=== PATIENT | male | born 1965 | race Caucasian/White ===

== ENCOUNTER 2018-06-19 14:15 | Inpatient (IN) | payer OTHER ==
[~2018-06-19] VITALS: Ht 182.9 cm; Wt 104.5 kg
--- NOTE | 2018-06-19 14:53 | ERD ---
ER Documentation Chief Complaint Chief Complaint sob HPI The patient is a 52-year-old male, presenting to the ER because of intermittent dyspnea/cough for the last 2 months, worse for the last 2 days. He denies fever, chills, neck pain, chest pain, complains of abdominal distention and constipation for the last 2 months, denies dysuria, hematuria. He does not smoke, used to drink heavily, denies illicit drug Past medical history: Gout, cirrhosis, anxiety Past surgical history: Left upper extremity surgery ROS All systems reviewed and are negative except as per history of present illness. Medications Home Meds No Active Prescriptions or Reported Meds Allergies Allergies: Coded Allergies: No Known Allergy (Unverified , 06/19/18) Physical Exam Vitals Vital Signs Date Temp Pulse Resp B/P (MAP) Pulse Ox O2 O2 Flow FiO2 Time Delivery Rate 06/19/18 Nasal 2 15:13 Cannula 06/19/18 Nasal 2.0 15:06 Cannula 06/19/18 98.6 78 24 148/78 98 14:20 (101) Physical Exam Const: No acute distress. Head: Atraumatic. Eyes: Normal Conjunctiva. ENT: Normal External Ears, Nose and Mouth. Neck: Full range of motion. No meningismus. Resp: Mild bilateral expiratory wheezes Cardio: Regular tachycardic Abd: Soft, non distended, normal bowel sounds, non tender. Skin: No petechiae or rashes. Back: No midline or flank tenderness. Ext: No cyanosis, or edema. No calf tenderness Neur: Awake and alert. No focal deficit Psych: Normal Mood and Affect. Result Diagram: 06/19/18 1505 06/19/18 1505 Results 24 hrs Laboratory Tests Test 06/19/18 15:05 White Blood Count 9.9 10^3/ul Red Blood Count 5.19 10^6/ul Hemoglobin 15.0 g/dl Hematocrit 46.0 % Mean Corpuscular Volume 88.6 fl Mean Corpuscular Hemoglobin 28.9 pg Mean Corpuscular Hemoglobin Concent 32.6 g/dl Red Cell Distribution Width 14.6 % Platelet Count 163 10^3/UL Mean Platelet Volume 11.6 fl Immature Granulocytes % 0.400 % Neutrophils % 70.5 % Lymphocytes % 15.3 % Monocytes % 8.2 % Eosinophils % 5.0 % Basophils % 0.6 % Nucleated Red Blood Cells % 0.0 /100WBC Immature Granulocytes # 0.040 10^3/ul Neutrophils # 7.0 10^3/ul Lymphocytes # 1.5 10^3/ul Monocytes # 0.8 10^3/ul Eosinophils # 0.5 10^3/ul Basophils # 0.1 10^3/ul Nucleated Red Blood Cells # 0.0 10^3/ul Prothrombin Time 12.7 Sec Prothrombin Time Ratio 1.0 INR International Normalized Ratio 0.94 Activated Partial Thromboplast Time 28.7 Sec Sodium Level 137 mmol/L Potassium Level 4.5 mmol/L Chloride Level 103 mmol/L Carbon Dioxide Level 26 mmol/L Anion Gap 8 Blood Urea Nitrogen 16 mg/dl Creatinine 1.00 mg/dl Est Glomerular Filtrat Rate mL/min > 60 mL/min Glucose Level 125 mg/dl Calcium Level 8.8 mg/dl Magnesium Level 1.8 mg/dl Total Bilirubin 1.4 mg/dl Direct Bilirubin 0.00 mg/dl Indirect Bilirubin 1.4 mg/dl Aspartate Amino Transf (AST/SGOT) 37 IU/L Alanine Aminotransferase (ALT/SGPT) 36 IU/L Alkaline Phosphatase 76 IU/L Troponin I 0.028 ng/ml B-Type Natriuretic Peptide 4090 PG/ML Total Protein 6.7 g/dl Albumin 3.9 g/dl Globulin 2.80 g/dl Albumin/Globulin Ratio 1.39 Current Medications Medications Dose Sig/Nemesio Start Time Status Last (Trade) Ordered Route PRN Stop Time Admin Dose Reason Admin Furosemide 40 mg ONCE ONCE 06/19/18 DC (Lasix) IV 18:00 06/19/18 18:01 Procedures/[place] [address] Radiology Main Line: [phone] DIAGNOSTIC IMAGING REPORT Patient: ERIC CASIANO : 1965 Age: 52 Sex: M MR #: [id number] DOS: 06/19/18 1509 Ordering MD: KARYNA HERNANDEZ MD Location: E/R Room/Bed: PROCEDURE: US Abdomen and retroperitoneal complete. CLINICAL INDICATION: abdominal pain TECHNIQUE: Multiple real-time images were acquired of the patient's abdomen and retroperitoneum utilizing a high resolution transducer. COMPARISON: None FINDINGS: The liver demonstrates normal echogenicity. The liver is enlarged in size and no focal solid lesions are seen. The portal vein is patent with normal direction of flow. No intrahepatic biliary dilatation is seen. The liver measures 18.8 cm in length. No gallstones are identified within the gallbladder. There is no pericholecystic fluid or gallbladder wall thickening. The common bile duct measures 3 mm in maximal dimension. The visualized portions of the pancreas are unremarkable. The tail of the pancreas is not seen. The spleen is normal in size. The spleen measures 8.7 cm in length. No free fluid is identified. The kidneys are normal in size, and demonstrate normal cortical echogenicity and cortical thickness. The right kidney measures 13 cm. The left kidney measures 12 cm. There is no evidence of hydronephrosis. There are no kidney stones. There is a 1.9 cm simple cyst in the right kidney. The proximal aorta measures 2.4 cm in transverse dimension. RPTAT: AA IMPRESSION: Mild hepatomegaly. No evidence of gallstones. Small simple cyst in the right kidney. .Jame Foy MD, MD Date Time Electronically viewed and signed by .Jame Foy MD, on 06/19/2018 16:19 .S/ CC: KARYNA HERNANDEZ MD [id number] [place] [address] Radiology Main Line: [phone] DIAGNOSTIC IMAGING REPORT Patient: ERIC CASIANO : 1965 Age: 52 Sex: M MR #: [id number] DOS: 06/19/18 0000 Ordering MD: KARYNA HERNANDEZ MD Location: E/R Room/Bed: PROCEDURE: XR Chest. CLINICAL INDICATION: Shortness of breath. TECHNIQUE: Single frontal view. COMPARISON: None. FINDINGS: The lungs are clear. The heart is enlarged. There is no pleural effusion. There is no pneumothorax. IMPRESSION: 1. Cardiomegaly. 2. Otherwise unremarkable chest radiograph. RPTAT: QQ .Chet Vallecillo MD, MD Date Time Electronically viewed and signed by .Chet Vallecillo MD, MD on 06/19/2018 16:25 .R/ CC: KARYNA HERNANDEZ MD [phone] EKG: Read by emergency physician Rate/Rhythm: Sinus tachycardia 115 beats/min QRS, ST, T-waves: No ST elevation, no T inversion,ABEL, RBBB, septal Q waves, inferolateral ST abnormality Impression: Abnormal EKG MEDICAL MAKING DECISION: The patient is a 52-year-old male, presenting with acute new onset CHF, was treated with Lasix 40 mg IV for acute CHF with good response The differential diagnoses considered include but are not limited to asthma, COPD, pneumonia, pulmonary embolus, pleural effusion, congestive heart failure. Departure Diagnosis: Primary Impression: CHF (congestive heart failure) Additional Impressions: Hepatomegaly Renal cyst, right Condition: Stable Comments The patient's blood pressure was elevated (>120/80) but appears stable without evidence of hypertension emergency or urgency. The patient was counseled about the risks of hypertension and urged to pursue outpatient monitoring and therapy within a week with their primary care physician. I discussed the findings with the patient. I discussed the patient with the hospitalist Dr Palomares at 6:10 pm . who was made aware of the lab, the treatment, the patient condition. The patient is admitted to [facility] Disclaimer: Inadvertent spelling and grammatical errors are likely due to EHR/dictation software use and do not reflect on the overall quality of patient care. Also, please note that the electronic time recorded on this note does not necessarily reflect the actual time of the patient encounter. KARYNA HERNANDEZ MD Jun 19, 2018 14:53
[2018-06-19] MEDS ORDERED: FUROSEMIDE 40 MG INJ IV ONE (18:00)
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
[2018-06-19] MEDS ORDERED: ACETAMINOPHEN 325 MG TAB PO PRN (20:00)
[2018-06-19] MEDS ORDERED: ONDANSETRON 4 MG INJ IV PRN (20:00)
[2018-06-19] MEDS ORDERED: NACL 0.9% 3 ML SYG IV SCH (20:00)
[2018-06-19 21:20] VITALS: BP 121/72; PULSE 107; RESP 20
[2018-06-19 21:21] VITALS: PULSE 109
[2018-06-19] MEDS: BENAZEPRIL 20 MG TAB PO SCH (21:39)
[2018-06-19] MEDS: SENNA TAB PO SCH (21:39)
[2018-06-19 22:04] VITALS: Ht 182.9 cm; Wt 104.5 kg
[2018-06-19] MEDS ORDERED: IOHEXOL 300MG/ML 150 ML BTL ONE (23:12)
[2018-06-19] MEDS ORDERED: SOD CHLORIDE 0.9% 100 ML ONE (23:12)
[2018-06-20] VITALS (12 sets, daily range): BP systolic 108–119; BP diastolic 58–73; PULSE 88–112; RESP 18–20
[2018-06-20] MEDS: FUROSEMIDE 40 MG INJ IV SCH ×2 (05:22→17:35)
[2018-06-20] MEDS: PANTOPRAZOLE (EC) 40 MG TAB PO SCH (05:22)
[2018-06-20] MEDS: SENNA TAB PO SCH ×2 (08:19→20:56)
[2018-06-20] MEDS: BENAZEPRIL 20 MG TAB PO SCH (08:19)
--- NOTE | 2018-06-20 13:47 | PN ---
Date/Time of Note Date/Time of Note DATE: 06/20/18 TIME: 13:44 Assessment/Plan VTE Prophylaxis Risk score (from Ns)>0 risk: 3 SCD applied (from Ns): Yes Pharmacological prophylaxis: heparin Lines/Catheters [facility] Saline Lock Assessment/Plan Hospital Course 52 yo male who presents with respiratory failure from volume overload, new onset CHF - Continue lasix IV to euvolemia - Await TTE read - NANDO-I for now Result Diagram: 06/20/18 0451 06/20/18 0450 Results 24hrs Laboratory Tests Test 06/19/18 15:05 06/20/18 04:50 06/20/18 04:51 White Blood Count 9.9 9.9 Red Blood Count 5.19 5.12 Hemoglobin 15.0 14.9 Hematocrit 46.0 45.3 Mean Corpuscular Volume 88.6 88.5 Mean Corpuscular Hemoglobin 28.9 L 29.1 Mean Corpuscular Hemoglobin Concent 32.6 32.9 Red Cell Distribution Width 14.6 H 14.6 H Platelet Count 163 177 Mean Platelet Volume 11.6 H 11.5 H Immature Granulocytes % 0.400 0.400 Neutrophils % 70.5 65.7 Lymphocytes % 15.3 17.0 Monocytes % 8.2 10.0 Eosinophils % 5.0 6.2 Basophils % 0.6 0.7 Nucleated Red Blood Cells % 0.0 0.0 Immature Granulocytes # 0.040 H 0.040 H Neutrophils # 7.0 6.5 Lymphocytes # 1.5 1.7 Monocytes # 0.8 1.0 H Eosinophils # 0.5 0.6 H Basophils # 0.1 0.1 Nucleated Red Blood Cells # 0.0 0.0 Prothrombin Time 12.7 Prothrombin Time Ratio 1.0 INR International Normalized Ratio 0.94 Activated Partial Thromboplast Time 28.7 Sodium Level 137 141 Potassium Level 4.5 4.1 Chloride Level 103 99 Carbon Dioxide Level 26 31 Anion Gap 8 11 Blood Urea Nitrogen 16 18 Creatinine 1.00 1.15 Est Glomerular Filtrat Rate mL/min > 60 > 60 Glucose Level 125 105 Calcium Level 8.8 8.9 Magnesium Level 1.8 1.9 Total Bilirubin 1.4 H 1.6 H Direct Bilirubin 0.00 0.00 Indirect Bilirubin 1.4 H 1.6 H Aspartate Amino Transf (AST/SGOT) 37 29 Alanine Aminotransferase (ALT/SGPT) 36 35 Alkaline Phosphatase 76 70 Troponin I 0.028 0.046 B-Type Natriuretic Peptide 4090 H Total Protein 6.7 6.8 Albumin 3.9 3.8 Globulin 2.80 3.00 Albumin/Globulin Ratio 1.39 1.26 Hemoglobin A1c 5.3 Phosphorus Level 5.5 H Triglycerides Level 97 Cholesterol Level 180 LDL Cholesterol, Calculated 134 HDL Cholesterol 27 L Cholesterol/HDL Ratio 6.6 Thyroid Stimulating Hormone (TSH) 0.690 Subjective 24 Hr Interval Summary Free Text/Dictation Diuresing effectively by his report A bit less dyspnea Exam/Review of Systems Vital Signs Vitals Vital Signs Date Temp Pulse Resp B/P (MAP) Pulse Ox O2 O2 Flow FiO2 Time Delivery Rate 06/20/18 90 12:38 06/20/18 97.8 18 110/73 96 Nasal 11:05 (85) Cannula 06/19/18 2.0 20:27 Intake and Output 06/19/18 06/19/18 06/20/18 1515:00 23:00 07:00 IntakeIntake Total 400 ml OutputOutput Total 450 ml BalanceBalance -50 ml Exam Comfortable appearing ++ JVD RRR Clear lungs Mild pedal edema b/l Medications Medications Current Medications IV Flush (NS 3 ml) 3 ml PER PROTOCOL IV ; Start 06/19/18 at 20:00 Ondansetron HCl (Zofran Inj) 4 mg Q6H PRN IV NAUSEA AND/OR VOMITING; Start 06/19/18 at 20:00 Acetaminophen (Tylenol Tab) 650 mg Q6H PRN PO PAIN LEVEL 1-3 OR FEVER; Start 06/19/18 at 20:00 Pantoprazole (Protonix Tab) 40 mg DAILY@06 PO Last administered on 06/20/18at 05:22; Admin Dose 40 MG; Start 06/20/18 at 06:00 Senna (Senokot) 2 tab BID PO Last administered on 06/20/18at 08:19; Admin Dose 2 TAB; Start 06/19/18 at 21:00 Furosemide (Lasix) 40 mg BID DIURETICS IV Last administered on 06/20/18at 05:22; Admin Dose 40 MG; Start 06/20/18 at 06:00 Benazepril HCl (Lotensin) 20 mg DAILY PO Last administered on 06/20/18at 08:19; Admin Dose 20 MG; Start 06/19/18 at 20:00 AHMET SOLIS MD Jun 20, 2018 13:47
[2018-06-21] VITALS (16 sets, daily range): BP systolic 97–128; BP diastolic 60–78; PULSE 81–230; RESP 18–19
[2018-06-21] MEDS: PANTOPRAZOLE (EC) 40 MG TAB PO SCH (05:33)
[2018-06-21] MEDS: FUROSEMIDE 40 MG INJ IV SCH (05:33)
[2018-06-21] MEDS: BENAZEPRIL 20 MG TAB PO SCH (08:05)
[2018-06-21] MEDS: SENNA TAB PO SCH ×2 (08:06→20:35)
--- NOTE | 2018-06-21 14:17 | RADRPT ---
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 Physician: JEREMY GREENE Quality: Good Procedures: Transthoracic echocardiogram with complete 2D, M-Mode, and doppler examination. Indications: Suspect mew Congestive Heart Failure. 2D/M Mode Doppler Measurement Value Normal Ranges Measurement Value Normal Ranges LVIDd MM 7.3 cm AV Mean Jonatan 0.8 m/sec LVIDs MM 6.3 cm AV Mean PG 3.0 mmHg IVSd MM 1.4 cm AV Peak Jonatan 1.2 m/sec AoR Diam MM 4.5 cm AV Peak PG 6.0 mmHg ACS MM 2.2 cm AV VTI 19.8 cm LA/Ao MM 1.0 AI Peak PG 41.0 mmHg LA Dimen MM 4.5 cm AI Peak Jonatan 3.2 m/sec LVIDd 2D 7.3 3.5 - 5.6 cm AI PHT 421.0 msec LVIDs 2D 5.8 2.1 - 4.1 cm LVOT Mean Jonatan 0.5 m/sec LVPWd 2D 1.4 0.6 - 1.1 cm LVOT Mean PG 1.0 mmHg IVSd 2D 1.5 0.6 - 1.1 cm LVOT Peak Jonatan 0.9 m/sec AoR Diam 2D 4.7 2.0 - 3.7 cm LVOT Peak PG 3.0 mmHg LA/Ao 2D 1 0 - 1 MV E Peak Jonatan 0.9 m/sec EF 2D 30.0 50.0 - 65.0 % MV A Peak Jonatan 0.7 m/sec LA Dimen 2D 4.6 2.3 - 4.0 cm MV E/A 1.2 IVC Diam 2.4 1.2 - 2.0 MV PHT 29.0 msec MV Decel Time 99 msec MV Decel Nicholas 9 Lat E` Jonatan 0.1 m/sec Lateral E/E` 16.5 Med E` Jonatan 0.0 m/sec MV E/A 1.2 MV PHT 29.0 msec MVA PHT 7.6 cm2 MR Peak PG 50.0 mmHg MR Peak Jonatan 3.5 m/sec TAPSE 2.6 cm PV Peak Jonatan 0.6 m/sec PV Peak PG 1.0 mmHg RA Pressure 15.0 Findings Left Ventricle: Moderate concentric left ventricular hypertrophy. Severe enlargement of left ventricle cavity. Severe global left ventricular systolic dysfunction. Ejection fraction is visually estimated at 20 %. Right Ventricle: Moderate enlargement of right ventricle. Left Atrium: There is moderate enlargement of left atrium. Right Atrium: There is moderate enlargement of right atrium. Mitral Valve: Normal appearance of the mitral valve. Mild to moderate mitral valve regurgitation. Aortic Valve: Normal appearance of the aortic valve. Mild to moderate aortic valve regurgitation. The regurgitation jet is eccentrically directed. Tricuspid Valve: Normal appearance and function of the tricuspid valve with trace physiologic regurgitation. Unable to obtain RVSP due to minimal presence of tricuspid regurgitation. Pulmonic Valve: Normal pulmonic valve appearance. Pericardium: Normal pericardium with no significant pericardial effusion. Aorta: Normal aortic root. IVC: Dilated IVC with respiratory collapse consistent with elevated right atrial pressure. Conclusions There is moderate enlargement of left atrium. There is moderate enlargement of right atrium. Moderate enlargement of right ventricle. Moderate concentric left ventricular hypertrophy. Severe enlargement of left ventricle cavity. Severe global left ventricular systolic dysfunction. Ejection fraction is visually estimated at 20 %. Normal appearance of the mitral valve. Mild to moderate mitral valve regurgitation. Normal appearance of the aortic valve. Mild to moderate aortic valve regurgitation. The regurgitation jet is eccentrically directed. Normal appearance and function of the tricuspid valve with trace physiologic regurgitation. Unable to obtain RVSP due to minimal presence of tricuspid regurgitation. Dilated IVC with respiratory collapse consistent with elevated right atrial pressure. Electronically Signed By: Markus Veloz 21-Jun-2018 14:16:35 -0800 Patient Name: ERIC CASIANO Study Date: 20-Jun-[id number]
--- NOTE | 2018-06-21 14:58 | PN ---
Date/Time of Note Date/Time of Note DATE: 06/21/18 TIME: 14:56 Assessment/Plan VTE Prophylaxis Risk score (from Nsg)>0 risk: 1 SCD applied (from Nsg): Yes Pharmacological prophylaxis: heparin Lines/Catheters IV Catheter Type (from Nrsg): Saline Lock Assessment/Plan Hospital Course 52 yo male who presents with respiratory failure from volume overload, new onset CHF. Found to have dilated cardiomyopathy with EF 20 - Hold lasix IV given TAURUS, volume much improved Dilated CM with EF 20: - Continue NANDO-I - Start Toprol - Cardiology consult Discharge to home pending Result Diagram: 06/20/18 0451 06/21/18 0538 Results 24hrs Laboratory Tests Test 06/21/18 05:38 Sodium Level 138 Potassium Level 4.0 Chloride Level 102 Carbon Dioxide Level 28 Anion Gap 8 Blood Urea Nitrogen 29 #H Creatinine 1.40 H Est Glomerular Filtrat Rate mL/min 53 L Glucose Level 125 Calcium Level 9.1 Subjective 24 Hr Interval Summary Free Text/Dictation Diuretics held for TAURUS respiratory status improved Dilated CM on TTE Exam/Review of Systems Vital Signs Vitals Vital Signs Date Temp Pulse Resp B/P (MAP) Pulse Ox O2 O2 Flow FiO2 Time Delivery Rate 06/21/18 103 12:20 06/21/18 98.4 19 97/73 (81) 97 11:29 06/21/18 Nasal 2.0 10:30 Cannula Intake and Output 06/20/18 06/20/18 06/21/18 1515:00 23:00 07:00 IntakeIntake Total 1200 ml 400 ml BalanceBalance 1200 ml 400 ml Exam breathing comfortably Mild JVD, improved No perihperal edema Obese belly Medications Medications Current Medications IV Flush (NS 3 ml) 3 ml PER PROTOCOL IV ; Start 06/19/18 at 20:00 Ondansetron HCl (Zofran Inj) 4 mg Q6H PRN IV NAUSEA AND/OR VOMITING; Start 06/19/18 at 20:00 Acetaminophen (Tylenol Tab) 650 mg Q6H PRN PO PAIN LEVEL 1-3 OR FEVER; Start 06/19/18 at 20:00 Pantoprazole (Protonix Tab) 40 mg DAILY@06 PO Last administered on 06/21/18at 05:33; Admin Dose 40 MG; Start 06/20/18 at 06:00 Senna (Senokot) 2 tab BID PO Last administered on 06/21/18at 08:06; Admin Dose 2 TAB; Start 06/19/18 at 21:00 Benazepril HCl (Lotensin) 20 mg DAILY PO Last administered on 06/21/18at 08:05; Admin Dose 20 MG; Start 06/19/18 at 20:00 AHMET SOLIS MD Jun 21, 2018 14:58
[2018-06-21] MEDS ORDERED: DIGOXIN 500 MCG INJ IV ONE (15:00)
--- NOTE | 2018-06-21 16:36 | CONS ---
Date/Time of Note Date/Time of Note DATE: 06/21/18 TIME: 16:30 Assessment/Plan Assessment/Plan Hospital Course 1. Congestive heart failure: Acute on chronic secondary to systolic heart failure 2. Abnormal EKG due to above 3. Severe cardiomyopathy 4. Dyspnea shortness of breath secondary to above 5. Renal insufficiency probably secondary to diuresis 6. Sinus tachycardia secondary to above Recommendations: IV Lasix has been discontinued. I will start the patient on digoxin We will start the patient on NANDO inhibitor now and as tolerated carvedilol will be added as well Diuresis as needed at this point does not appear to be fluid overloaded though WILL probably benefit from Corlanor which be reinitiated if still tachycardic after maximize medical therapy including beta-susana We will consider ischemic workup as an outpatient Thank you for his referral. We will continue to follow along with you EUSEBIA TRAVIS MD [facility] Result Diagram: 06/20/18 0451 06/21/18 0538 Results 24hrs Laboratory Tests Test 06/21/18 05:38 Sodium Level 138 Potassium Level 4.0 Chloride Level 102 Carbon Dioxide Level 28 Anion Gap 8 Blood Urea Nitrogen 29 #H Creatinine 1.40 H Est Glomerular Filtrat Rate mL/min 53 L Glucose Level 125 Calcium Level 9.1 Consultation Date/Type/Reason Admit Date/Time Jun 19, 2018 Date of Consultation: Jun 21, 2018 Type of Consult cv Reason for Consultation CHF Requesting Provider: AHMET SOLIS MD Hx of Present Illness Interventional cardiology consultation note Chief complaint: Abdominal GERD shortness of breath PND Reason for consult: Congestive heart failure History of present illness: Thank you for this referral. History was obtained from the patient through a orthotic/prosthetic practitioner. Also discussed with the staff and physicians. This is a pleasant 52-year-old [place] gentleman with no known past medical history who has had increasing shortness of breath abdominal cares over the past 2 months. He denies any chest pain or pressure to me but has dyspnea on exertion. He is also noted abdominal distention and came to emergency room. He was admitted with congestive heart failure diagnosis had been placed on IV L asix. His creatinine has started to rise. He has also complained of difficulty breathing at night on waking up short of breath intermittently consistent with his PND. However this has resolved now Allergies: No known drug allergies Medications At Home none Family history: Mother has high blood pressure Social history: Patient denies any history of tobacco alcohol drug abuse to me. He said that he used to drink a little bit with 1 or 2 beer may be maximum no heavy drinking. He is originally from [place] Past medical history: Denies any Review of system: Patient denies all others except for above-mentioned Past Medical History Medications Current Medications IV Flush (NS 3 ml) 3 ml PER PROTOCOL IV ; Start 06/19/18 at 20:00 Ondansetron HCl (Zofran Inj) 4 mg Q6H PRN IV NAUSEA AND/OR VOMITING; Start 06/19/18 at 20:00 Acetaminophen (Tylenol Tab) 650 mg Q6H PRN PO PAIN LEVEL 1-3 OR FEVER; Start 06/19/18 at 20:00 Pantoprazole (Protonix Tab) 40 mg DAILY@06 PO Last administered on 06/21/18at 05:33; Admin Dose 40 MG; Start 06/20/18 at 06:00 Senna (Senokot) 2 tab BID PO Last administered on 06/21/18at 08:06; Admin Dose 2 TAB; Start 06/19/18 at 21:00 Benazepril HCl (Lotensin) 20 mg DAILY PO Last administered on 06/21/18at 08:05; Admin Dose 20 MG; Start 06/19/18 at 20:00 Allergies: Coded Allergies: No Known Allergy (Unverified , 06/19/18) Social History Alcohol Use: none Smoking Status: Never smoker Drug Use: none Exam/Review of Systems Vital Signs Vitals Vital Signs Date Temp Pulse Resp B/P (MAP) Pulse Ox O2 O2 Flow FiO2 Time Delivery Rate 06/21/18 98.8 99 19 116/72 95 15:13 (87) 06/21/18 Nasal 2.0 10:30 Cannula Intake and Output 06/20/18 06/20/18 06/21/18 1414:59 22:59 06:59 IntakeIntake Total 1200 ml 400 ml BalanceBalance 1200 ml 400 ml Exam General: no acute distress HEENT: NC/AT. pupils are equal. round. NECK: + JVD. no stridor. CV: RRR. systolic murmur; no gallop or rubs. PULM: no wheezing or rhonchi. GI: SOFT, NT, ND, no rebound or guarding Extremity: trace B/L LE edema. no clubbing. neuro: awake and alert, OX3. Psych: calm and pleasant rectal: deferred : normal EKG was personally reviewed shows sinus tachycardia. Right bundle branch block. Anteroseptal infarct age undetermined. Echocardiogram done June 20, 2018 which was personally reviewed shows: There is moderate enlargement of left atrium. There is moderate enlargement of right atrium. Moderate enlargement of right ventricle. Moderate concentric left ventricular hypertrophy. Severe enlargement of left ventricle cavity. Severe global left ventricular systolic dysfunction. Ejection fraction is visually estimated at 20 %. Normal appearance of the mitral valve. Mild to moderate mitral valve regurgitation. Normal appearance of the aortic valve. Mild to moderate aortic valve regurgitation. The regurgitation jet is eccentrically directed. Normal appearance and function of the tricuspid valve with trace physiologic regurgitation. Unable to obtain RVSP due to minimal presence of tricuspid regurgitation. Dilated IVC with respiratory collapse consistent with elevated right atrial pressure. Chest x-ray done on June 19, 2018 shows: 1. Cardiomegaly. 2. Otherwise unremarkable chest radiograph. Medications Medications Current Medications IV Flush (NS 3 ml) 3 ml PER PROTOCOL IV ; Start 06/19/18 at 20:00 Ondansetron HCl (Zofran Inj) 4 mg Q6H PRN IV NAUSEA AND/OR VOMITING; Start 06/19/18 at 20:00 Acetaminophen (Tylenol Tab) 650 mg Q6H PRN PO PAIN LEVEL 1-3 OR FEVER; Start 06/19/18 at 20:00 Pantoprazole (Protonix Tab) 40 mg DAILY@06 PO Last administered on 06/21/18at 05:33; Admin Dose 40 MG; Start 06/20/18 at 06:00 Senna (Senokot) 2 tab BID PO Last administered on 06/21/18at 08:06; Admin Dose 2 TAB; Start 06/19/18 at 21:00 Benazepril HCl (Lotensin) 20 mg DAILY PO Last administered on 06/21/18at 08:05; Admin Dose 20 MG; Start 06/19/18 at 20:00 EUSEBIA TRAVIS MD Jun 21, 2018 16:36
[2018-06-21] MEDS ORDERED: LISINOPRIL 5 MG TAB PO SCH (17:00)
[2018-06-21] MEDS: ASPIRIN (EC) 81 MG TAB PO SCH (17:04)
[2018-06-21] MEDS ORDERED: ATORVASTATIN 10 MG TAB PO SCH (21:00)
[2018-06-22] VITALS (9 sets, daily range): BP systolic 104–140; BP diastolic 66–85; PULSE 89–108; RESP 20–22
[2018-06-22] MEDS: PANTOPRAZOLE (EC) 40 MG TAB PO SCH (05:40)
[2018-06-22] MEDS: BENAZEPRIL 20 MG TAB PO SCH (09:33)
[2018-06-22] MEDS: SENNA TAB PO SCH (09:33)
[2018-06-22] MEDS: ASPIRIN (EC) 81 MG TAB PO SCH (09:33)
[2018-06-22] MEDS ORDERED: METOPROLOL 25 MG TAB PO SCH (10:30)
--- NOTE | 2018-06-22 10:32 | CONS ---
Date/Time of Note Date/Time of Note DATE: 06/22/18 TIME: 10:30 Assessment/Plan Assessment/Plan Hospital Course 1. Congestive heart failure: Acute on chronic secondary to systolic heart failure 2. Abnormal EKG due to above 3. Severe cardiomyopathy 4. Dyspnea shortness of breath secondary to above 5. Renal insufficiency probably secondary to diuresis 6. Sinus tachycardia secondary to above Assessment/Plan will add metoprolol 25 bid Result Diagram: 06/20/18 0451 06/22/18 0502 Results 24hrs Laboratory Tests Test 06/22/18 05:02 Sodium Level 142 Potassium Level 4.1 Chloride Level 102 Carbon Dioxide Level 29 Anion Gap 11 Blood Urea Nitrogen 37 H Creatinine 1.40 H Est Glomerular Filtrat Rate mL/min 53 L Glucose Level 140 Calcium Level 9.1 Magnesium Level 2.2 Total Bilirubin 0.6 Direct Bilirubin 0.00 Indirect Bilirubin 0.6 Aspartate Amino Transf (AST/SGOT) 25 Alanine Aminotransferase (ALT/SGPT) 26 Alkaline Phosphatase 100 B-Type Natriuretic Peptide 715 H Total Protein 7.3 Albumin 3.9 Globulin 3.40 H Albumin/Globulin Ratio 1.14 Consultation Date/Type/Reason Admit Date/Time Jun 19, 2018 at 19:53 Initial Consult Date 06/21/18 Type of Consult cv Requesting Provider: AHMET SOLIS MD 24 HR Interval Summary Free Text/Dictation sob improved though still present when getting into upright position Detailed Summary Respiratory: no complaints Cardiovascular: no complaints Gastrointestinal: no complaints Musculoskeletal: no complaints Skin: no complaints Neurologic: no complaints Endocrine: no complaints Exam/Review of Systems Vital Signs Vitals Vital Signs Date Temp Pulse Resp B/P (MAP) Pulse Ox O2 O2 Flow FiO2 Time Delivery Rate 06/22/18 101 09:03 06/22/18 Room Air 08:17 06/22/18 97.7 20 117/78 96 07:41 (91) 06/22/18 2.0 03:47 Intake and Output 06/21/18 06/21/18 06/22/18 1515:00 23:00 07:00 IntakeIntake Total 700 ml 600 ml BalanceBalance 700 ml 600 ml Exam Constitutional: alert, oriented Neck: supple Respiratory: clear to auscultation Cardiovascular: regular rate and rhythm Gastrointestinal: soft Musculoskeletal: nl extremities to inspection Extremities: normal pulses Medications Medications Current Medications IV Flush (NS 3 ml) 3 ml PER PROTOCOL IV ; Start 06/19/18 at 20:00 Ondansetron HCl (Zofran Inj) 4 mg Q6H PRN IV NAUSEA AND/OR VOMITING; Start 06/19/18 at 20:00 Acetaminophen (Tylenol Tab) 650 mg Q6H PRN PO PAIN LEVEL 1-3 OR FEVER; Start 06/19/18 at 20:00 Pantoprazole (Protonix Tab) 40 mg DAILY@06 PO Last administered on 06/22/18at 05:40; Admin Dose 40 MG; Start 06/20/18 at 06:00 Senna (Senokot) 2 tab BID PO Last administered on 06/22/18at 09:33; Admin Dose 2 TAB; Start 06/19/18 at 21:00 Benazepril HCl (Lotensin) 20 mg DAILY PO Last administered on 06/22/18at 09:33; Admin Dose 20 MG; Start 06/19/18 at 20:00 Aspirin (Halfprin) 81 mg DAILY PO Last administered on 06/22/18at 09:33; Admin Dose 81 MG; Start 06/21/18 at 17:00 Atorvastatin Calcium (Lipitor) 10 mg HS PO Last administered on 06/21/18at 20:35; Admin Dose 10 MG; Start 06/21/18 at 21:00 Digoxin (Digoxin) 0.125 mg DAILY@13 PO ; Start 06/22/18 at 13:00 MCKENNA MONTANO MD Jun 22, 2018 10:32
[2018-06-22] MEDS ORDERED: DIGOXIN 0.125 MG TAB PO SCH (13:00)
[2018-06-22] MEDS ORDERED: METO-319 PO (15:23)
[2018-06-22] MEDS ORDERED: ASPI-817 PO (15:23)
[2018-06-22] MEDS ORDERED: FURO-110 PO (15:23)
[2018-06-22] MEDS ORDERED: LISI10TA2 PO (15:23)
[2018-06-22] MEDS ORDERED: ATOR10TA65 PO (15:23)
--- NOTE | 2018-06-22 15:24 | PDOCDIS ---
Discharge Instructions DIAGNOSIS Discharge Diagnosis CHF CONDITION [id number] Patient Condition: [id number] Stable HOME CARE INSTRUCTIONS: [id number] Special Diet: [id number] POINTMENTS Follow-up Plan Jair anshul donna con los cardiologos en [place]. Tiene problema de kamran que require tratamiento para todo la chase Génesis ollie medicamentos cada yang AHMET SOLIS MD Jun 22, 2018 15:24
--- NOTE | 2018-06-22 16:08 | DS ---
Date/Time of Note Date/Time of Note DATE: 06/22/18 TIME: 16:07 Discharge Summary Admission/Discharge Info Admit Date/Time Jun 19, 2018 at 19:53 Discharge Date/Time Discharge Diagnosis CHF Patient Condition: Stable Hospital Course 52 yo male who presents with respiratory failure from volume overload. Found to have new onset CHF with global hypokinesis, dilated cardiomyopathy with EF 20 He was given IV lasix and volume status normalized. He was started on NANDO inhibitor and Beta blocke.r Discharged on lisinopril, Toprol, and lasix 20 and encouraged to follow up with cardiology as an outpatient for titration of medications and consideration of ischemia evaluation Follow-up Plan Jair anshul donna con los cardiologos en [place]. Tiene problema de kamran que require tratamiento para todo la chase Génesis ollie medicamentos cada yang Primary Care Provider Care Physician No Primary Pending Labs Laboratory Tests Test 06/22/18 05:02 Sodium Level 142 mmol/L (135-144) Potassium Level 4.1 mmol/L (3.5-5.1) Chloride Level 102 mmol/L (97-110) Carbon Dioxide Level 29 mmol/L (21-31) Anion Gap 11 (5-13) Blood Urea Nitrogen 37 mg/dl (7-20) Creatinine 1.40 mg/dl (0.61-1.24) Est Glomerular Filtrat Rate mL/min 53 mL/min (>60) Glucose Level 140 mg/dl (70-220) Calcium Level 9.1 mg/dl (8.4-10.2) Magnesium Level 2.2 mg/dl (1.7-2.5) Total Bilirubin 0.6 mg/dl (0.2-1.3) Direct Bilirubin 0.00 mg/dl (0.00-0.20) Indirect Bilirubin 0.6 mg/dl (0-1.1) Aspartate Amino Transf (AST/SGOT) 25 IU/L (15-46) Alanine Aminotransferase (ALT/SGPT) 26 IU/L (13-69) Alkaline Phosphatase 100 IU/L (42-121) B-Type Natriuretic Peptide 715 PG/ML (0-125) Total Protein 7.3 g/dl (6.1-8.1) Albumin 3.9 g/dl (3.3-4.9) Globulin 3.40 g/dl (1.3-3.2) Albumin/Globulin Ratio 1.14 AHMET SOLIS MD Jun 22, 2018 16:08
== END 2018-06-22 19:10 | disposition home or self-care (01) | DRG 291 ==
LOC: E/R 14:15 → 6WM 19:53
PROVIDERS: ADMIT Internal Medicine; ATTEND Internal Medicine
DX: I11.0 Hypertensive heart disease with heart failure (principal); J96.90 Respiratory failure, unspecified, unspecified whether with hypoxia or hypercapnia; N17.9 Acute kidney failure, unspecified; I50.23 Acute on chronic systolic (congestive) heart failure; M10.9 Gout, unspecified; K74.60 Unspecified cirrhosis of liver; R14.0 Abdominal distension (gaseous); E78.5 Hyperlipidemia, unspecified; R00.0 Tachycardia, unspecified; I42.0 Dilated cardiomyopathy
CPT/HCPCS: 36415; 71045; 74177; 76700; 80048; 80053; 80061; 83036; 83735; 83880; 84100; 84443; 84484; 85025; 85610; 85730; 93005; 93306; J1940; Q9967

== ENCOUNTER 2018-08-03 15:22 | Inpatient (IN) | payer OTHER ==
[~2018-08-03] VITALS: Ht 172.7 cm; Wt 109.9 kg
[~2018-08-03 15:22] MED LIST: ASPI-817 PO; ATOR10TA65 PO; FURO-110 PO; LISI10TA2 PO; METO-319 PO
[2018-08-03] MEDS ORDERED: ACETAMINOPHEN 325 MG TAB PO STA (15:55)
[2018-08-03] MEDS ORDERED: SODIUM CHLORIDE 0.9% 1L BAG IV* STA (15:55)
[2018-08-03] MEDS ORDERED: CEFEPIME 2GM/50 ML (PMX) 50 ML IVPB STA (15:55)
[2018-08-03] MEDS ORDERED: VANCOMYCIN 1 GM (PMX) 250 ML IVPB ONE (16:00)
[2018-08-03] MEDS ORDERED: ASPI81TA52 PO (16:02)
[2018-08-03] MEDS ORDERED: ALLO100T PO (16:02)
[2018-08-03] MEDS ORDERED: IVAB5TAB PO (16:03)
[2018-08-03] MEDS ORDERED: FURO20TA3 PO (16:03)
[2018-08-03] MEDS ORDERED: DIGO125T PO (16:04)
[2018-08-03] MEDS ORDERED: ERGO2000 PO (16:04)
[2018-08-03] MEDS ORDERED: LISI10TA2 PO (16:04)
[2018-08-03] MEDS ORDERED: METO-335 PO (16:05)
[2018-08-03] MEDS ORDERED: ATOR10TA65 PO (16:05)
[2018-08-03] MEDS ORDERED: ALBUTEROL 0.083% (NEB) 2.5 MG/3 ML AMP NEB STA (16:12)
[2018-08-03] MEDS ORDERED: METHYLPREDNISOLONE 125 MG INJ IV STA (16:12)
--- NOTE | 2018-08-03 18:24 | ERD ---
ER Documentation Chief Complaint Chief Complaint L ankle swelling, wheezing X 3 days HPI This is a 53-year-old male who is here for fever, right ankle swelling with cough and wheezing. He states that he has gout and is having a flareup in his right ankle for the past 4 days. Is also been having a cough with nonproductive sputum and developed a fever today he felt chills but did not know he had a fever until he got to the ER. He had a temp of 101.3. The patient has right ankle pain and swelling that he says is consistent with prior gout. No abdominal pain vomiting diarrhea no sore throat runny nose sneezing no body aches no dysuria ROS All systems reviewed and are negative except as per history of present illness. Medications Home Meds Reported Medications Metoprolol Succinate* (Toprol XL*) 25 Mg Tab.sr.24h, 25 MG PO QPM, #30 TAB 08/03/18 Atorvastatin Calcium (Atorvastatin Calcium) 10 Mg Tablet, 10 MG PO QHS, #30 TAB 08/03/18 Lisinopril* (Lisinopril*) 10 Mg Tablet, 10 MG PO DAILY, #30 TAB 08/03/18 Digoxin* (Digitek*) 125 Mcg Tablet, 0.125 MG PO DAILY, TAB 08/03/18 Ergocalciferol (Vitamin D2) (VITAMIN D2) 2,000 Unit Tablet, 2000 UNIT PO DAILY, TAB 08/03/18 Ivabradine HCl (Corlanor) 5 Mg Tablet, 5 MG PO BID, #60 TAB 08/03/18 Furosemide* (Furosemide*) 20 Mg Tablet, 20 MG PO DAILY, #60 TAB 08/03/18 Allopurinol* (Allopurinol*) 100 Mg Tablet, 100 MG PO DAILY, TAB 08/03/18 Aspirin (Low Dose Aspirin) 81 Mg Tablet., 81 MG PO DAILY, #30 TAB 08/03/18 Discontinued Scripts Aspirin* (Aspirin* EC) 81 Mg Tablet., 81 MG PO DAILY for 90 Days, #90 TAB 5 Refills Prov:AHMET SOLIS MD 06/22/18 Furosemide* (Lasix*) 20 Mg Tablet, 20 MG PO DAILY for 30 Days, #30 TAB 2 Refills Prov:AHMET SOLIS MD 06/22/18 Metoprolol Succinate* (Toprol XL*) 50 Mg Tab.er.24h, 50 MG PO DAILY for 90 Days, #90 TAB 5 Refills Prov:AHMET SOLIS MD 06/22/18 Lisinopril* (Lisinopril*) 10 Mg Tablet, 10 MG PO DAILY for 90 Days, #90 TAB 5 Refills Prov:AHMET SOLIS MD 06/22/18 Atorvastatin (Atorvastatin) 10 Mg Tablet, 10 MG PO HS for 60 Days, #60 TAB 5 Refills Prov:AHMET SOLIS MD 06/22/18 Allergies Allergies: Coded Allergies: No Known Allergy (Unverified , 08/03/18) PMhx/Soc History of Surgery: Yes (CHARMAINE) Anesthesia Reaction: No Hx Neurological Disorder: No Hx Respiratory Disorders: No Hx Cardiac Disorders: Yes (HTN, CHF) Hx Psychiatric Problems: No Hx Miscellaneous Medical Probl: No (LIVER CIRRHOSIS, GOUT) Hx Alcohol Use: Yes Hx Substance Use: No Hx Tobacco Use: No Smoking Status: Never smoker FmHx Family History: No coronary disease Physical Exam Vitals Vital Signs Date Temp Pulse Resp B/P (MAP) Pulse Ox O2 O2 Flow FiO2 Time Delivery Rate 08/03/18 77 16 107/53 93 Room Air 18:30 (71) 08/03/18 73 17 96 21 17:05 08/03/18 101.5 16:11 08/03/18 99.3 91 18 127/62 97 Room Air 15:58 (83) 08/03/18 101.5 102 18 137/67 94 15:26 (90) Physical Exam Const: Well-developed, well-nourished Head: Atraumatic, normocephalic Eyes: Normal Conjunctiva, PERRLA, EOMI, normal sclera, no nystagmus ENT: Normal External Ears, Nose and Mouth, moist mucus membranes. Neck: Full range of motion. No meningismus, no lymphadenopathy. Resp: There is good air movement no increased work of breathing but diffuse wheezing bilaterally Cardio: Regular rate and rhythm, no murmurs, S1 S2 present Abd: Soft, non tender x 4, non distended. Normal bowel sounds, no guarding or rebound, no pulsitile abdominal masses or bruits Skin: No petechiae or rashes, no ecchymosis , no maculopapular rash Back: No midline or flank tenderness Ext: No cyanosis, right lateral ankle with swelling and erythema and tenderness there is pain with range of motion but no signs of overt septic joint, FROM x 4, normal inspection, neurovascularly intact x 4 Neur: Awake and alert, STR 5/5 x 4, sensation intact x 4, no focal findi ngs, cerebellum intact Psych: Normal Mood and Affect Result Diagram: 08/03/18 1600 08/03/18 1600 Results 24 hrs Laboratory Tests Test 08/03/18 15:45 08/03/18 16:00 08/03/18 17:46 POC Venous Lactate 1.5 mmol/L 0.8 mmol/L White Blood Count 10.4 10^3/ul Red Blood Count 5.26 10^6/ul Hemoglobin 14.7 g/dl Hematocrit 45.4 % Mean Corpuscular Volume 86.3 fl Mean Corpuscular Hemoglobin 27.9 pg Mean Corpuscular 32.4 g/dl Hemoglobin Concent Red Cell Distribution Width 13.9 % Platelet Count 177 10^3/UL Mean Platelet Volume 10.8 fl Immature Granulocytes % 0.700 % Neutrophils % % Segmented Neutrophils % (Manual) 51 % Lymphocytes % % Lymphocytes % (Manual) 17 % Reactive Lymphocytes % (Manual) 15 % Monocytes % % Monocytes % (Manual) 16 % Eosinophils % % Eosinophils % (Manual) 1 % Basophils % % Nucleated Red Blood Cells % 0.0 /100WBC Immature Granulocytes # 0.070 10^3/ul Neutrophils # 10^3/ul Lymphocytes (Manual) 1.7 10^3/ul Lymphocytes # 10^3/ul Reactive Lymphocytes # 1.5 10^3/ul Monocytes # 10^3/ul Monocytes # (Manual) 1.6 10^3/ul Eosinophils # 10^3/ul Basophils # 10^3/ul Nucleated Red Blood Cells # 10^3/ul Platelet Estimate NORMAL Erythrocyte Sedimentation Rate 27 mm/Hr Sodium Level 134 mmol/L Potassium Level 4.9 mmol/L Chloride Level 96 mmol/L Carbon Dioxide Level 27 mmol/L Anion Gap 11 Blood Urea Nitrogen 32 mg/dl Creatinine 1.35 mg/dl Est Glomerular Filtrat Rate mL/min 55 mL/min Glucose Level 93 mg/dl Uric Acid 8.0 mg/dl Calcium Level 9.4 mg/dl Total Bilirubin 1.2 mg/dl Direct Bilirubin 0.00 mg/dl Indirect Bilirubin 1.2 mg/dl Aspartate Amino Transf (AST/SGOT) 24 IU/L Alanine 17 IU/L Aminotransferase (ALT/SGPT) Alkaline Phosphatase 65 IU/L Total Protein 8.0 g/dl Albumin 4.4 g/dl Globulin 3.60 g/dl Albumin/Globulin Ratio 1.22 Current Medications Medications Dose Sig/Nemesio Start Time Status Last (Trade) Ordered Route PRN Stop Time Admin Dose Reason Admin Sodium 3,300 ml BOLUS OVER 2 08/03/18 DC 08/03/18 Chloride HOURS STAT 15:55 16:09 (NS) IV* 08/03/18 15:58 650 mg ONCE STAT 08/03/18 DC 08/03/18 Acetaminophen PO 15:55 16:11 (Tylenol 08/03/18 15:58 Tab) Cefepime HCl 50 ml @ ONCE STAT 08/03/18 DC 08/03/18 100 mls/hr IVPB 15:55 16:09 08/03/18 16:24 Vancomycin 250 ml @ ONCE ONCE 08/03/18 DC 08/03/18 HCl 125 mls/hr IVPB 16:00 16:33 08/03/18 17:59 Albuterol 7.5 mg ONCE STAT 08/03/18 DC 08/03/18 (Proventil NEB 16:12 17:04 0.083% (Neb)) 08/03/18 16:13 125 mg ONCE STAT 08/03/18 DC 08/03/18 Methylprednis IV 16:12 16:45 olone Sodium 08/03/18 16:13 Succinate (Solu-Medrol) Procedures/MDM MR #: [id number] DOS: 08/03/18 1555 Ordering MD: PANFILO RECINOS DO Location: E/R Room/Bed: PROCEDURE: XR Right Ankle Complete, 3 or More Views CLINICAL INDICATION: Swelling. TECHNIQUE: Frontal, lateral and oblique views of the right ankle. COMPARISON: None FINDINGS: BONES/JOINTS: Small ankle joint effusion. Mild degenerative narrowing of the ankle joint. No fracture or acute osseous abnormality demonstrated. 3 mm plantar calcaneal spur. No dislocation. SOFT TISSUES: Soft tissue swelling medially and laterally. IMPRESSION: 1. Soft tissue swelling medially and laterally. 2. Small ankle joint effusion. 3. Mild degenerative narrowing of the ankle joint. 4. No fracture or acute osseous abnormality demonstrated. RPTAT: [facility] Akbar Altman, Physician Temperer Date Time Electronically viewed and signed by Akbar Altman Physician Temperer on 0 08/03/2018 17:07 RmC/ CC: PANFILO RECINOS DO [id number] Patient's had blood cultures given antibiotics cefepime and vancomycin. Chest x-ray has been taken but is pending. Will admit for right leg cellulitis/elevated uric acid/gout. No signs of sepsis clinically or on lactic acid levels which were all normal. Spoke with Dr. urrutia will admit Departure Diagnosis: Primary Impression: Cellulitis of right lower extremity Additional Impression: Fever Fever type: unspecified Qualified Codes: R50.9 - Fever, unspecified Condition: Stable PANFILO RECINOS DO Aug 03, 2018 18:23
[2018-08-03] MEDS ORDERED: ACETAMINOPHEN 325 MG TAB PO PRN ×2 (22:00→22:30)
[2018-08-03] MEDS ORDERED: ONDANSETRON 4 MG INJ IV PRN ×2 (22:00→22:30)
[2018-08-03] MEDS ORDERED: NACL 0.9% 3 ML SYG IV SCH (22:30)
[2018-08-03] MEDS ORDERED: LIDOCAINE 1% (MPF) 5 ML VIAL INJ ONE (22:30)
[2018-08-03] MEDS ORDERED: POVIDONE IODINE 10% 28.4 GM OINT TOP ONE (22:30)
[2018-08-03] MEDS ORDERED: HYDROCODONE/APAP (5/325) TAB PO PRN (22:30)
--- NOTE | 2018-08-04 00:05 | HP ---
Date/Time of Note Date/Time of Note DATE: 08/04/18 TIME: 00:05 Assessment/Plan VTE Prophylaxis SCD applied (from Nsg): Yes (Left lower extremity) Pharmacological prophylaxis: NA/contraindicated Pharm contraindication: surgical contra Lines/Catheters IV Catheter Type (from Nrsg): Saline Lock Assessment/Plan Hospital Course This is a 53-year-old male being admitted to the [facility] floor for: #1 Sepsis: Secondary to suspected right ankle infection versus respiratory infection. Patient did receive a dose of antibiotics in the ED, he did have his ankle aspirated by orthopedic surgeon, currently waiting for synovial fluid results. We will continue Vanco and ceftriaxone. Await culture results. Lactic acid is within normal. Will check a CRP level in the a.m. ESR was 27 #2 right ankle swelling: Septic joint versus gout. The patient does state that his symptoms of the ankle are similar to his previous gout flare, given the fact that he also did present with a fever we need to rule out joint infection. Right ankle fluid tapped by the orthopedic surgeon, awaiting synovial fluid analysis. Vanco and ceftriaxone for now. Will await culture results over the next 48 hours and if negative for signs of infection and positive for uric acid crystals then will treat for gout flare exclusively. He did receive steroids already in the ED for gout, however will avoid further steroids as per [facility] recs. #3 history of systolic CHF: EF of 30% on echo in Jun 2018. Currently does not appear to be in any acute decompensation. Patient has LifeVest. Continue patient's home medications. #4 gout: Uric acid level is elevated to 8 he also does have a elevated ESR 27. We will continue his allopurinol. Receive a dose of steroids in the ED. Orthopedic surgery would like to avoid further steroids at the current time. Crcl is greater than 95, will give colchine for 3 days at the current time. avoid nsaids given systolic HF. #5 acute versus acute on chronic kidney injury: Patient has a creatinine of 1.35, previous 1 month ago was 1.40 This likely could be prerenal etiology, NANDO inhibitor effect. Hold NANDO inhibitor at the current time and resume once baseline established which may very will be his current levels. Give gentle IV fluid hydration.. Monitor renal function. We will try to avoid any nephrotoxic agents. Renally dose any medications. #6 hyperlipidemia: Continue statin #7 DVT GI prophylaxis: SCDs to the left lower extremity, Protonix Further treatment strategy will be implemented as per the clinical course Result Diagram: 08/03/18 1600 08/03/18 1600 Results 24hrs Laboratory Tests Test 08/03/18 15:45 08/03/18 16:00 08/03/18 17:46 POC Venous Lactate 1.5 0.8 White Blood Count 10.4 Red Blood Count 5.26 Hemoglobin 14.7 Hematocrit 45.4 Mean Corpuscular Volume 86.3 Mean Corpuscular Hemoglobin 27.9 L Mean Corpuscular Hemoglobin Concent 32.4 Red Cell Distribution Width 13.9 Platelet Count 177 Mean Platelet Volume 10.8 H Immature Granulocytes % 0.700 H Neutrophils % Segmented Neutrophils % (Manual) 51 Lymphocytes % Lymphocytes % (Manual) 17 Reactive Lymphocytes % (Manual) 15 H Monocytes % Monocytes % (Manual) 16 H Eosinophils % Eosinophils % (Manual) 1 Basophils % Nucleated Red Blood Cells % 0.0 Immature Granulocytes # 0.070 H Neutrophils # Lymphocytes (Manual) 1.7 Lymphocytes # Reactive Lymphocytes # 1.5 H Monocytes # Monocytes # (Manual) 1.6 H Eosinophils # Basophils # Nucleated Red Blood Cells # Platelet Estimate NORMAL Erythrocyte Sedimentation Rate 27 H Prothrombin Time 13.0 Prothrombin Time Ratio 1.0 INR International Normalized Ratio 0.97 Activated Partial Thromboplast Time 34.9 Sodium Level 134 L Potassium Level 4.9 Chloride Level 96 L Carbon Dioxide Level 27 Anion Gap 11 Blood Urea Nitrogen 32 H Creatinine 1.35 H Est Glomerular Filtrat Rate mL/min 55 L Glucose Level 93 Uric Acid 8.0 H Calcium Level 9.4 Total Bilirubin 1.2 Direct Bilirubin 0.00 Indirect Bilirubin 1.2 H Aspartate Amino Transf (AST/SGOT) 24 Alanine Aminotransferase (ALT/SGPT) 17 Alkaline Phosphatase 65 Total Protein 8.0 Albumin 4.4 Globulin 3.60 H Albumin/Globulin Ratio 1.22 HPI/ROS Admit Date/Time Admit Date/Time Hx of Present Illness cc: right ankle pain, fever This is a 53-year-old male who is here for fever, right ankle swelling with cough and wheezing. He states that he has gout and is having a flareup in his right ankle for the past 4 days. Is also been having a cough with nonproductive sputum and developed a fever today he felt chills but did not know he had a fever until he got to the ER. He had a temp of 101.3. The patient has right ankle pain and swelling that he says is consistent with prior gout. No abdominal pain vomiting diarrhea no sore throat runny nose sneezing no body aches no dysuria. Hx of gout in multiple joints. He did receive abx and steroids in the ER. He did report that his ankle pain did improve in the ER. Reports that his ankle was warm and red at home. allergies: nkda medsL see mar ROS Const: As per HPI Eyes : No pain discharge or redness or change in visual acuity ENT: No pain, sore throat, congestion, congestion, dysphagia or discharge Respiratory: As per HPI Cardiovascular: No chest pain, palpitation, PND, or edema GI : no change in appetite, abdominal pain, nausea, vomiting, diarrhea, constipation, or change in the color his stool Genitourinary: No dysuria, hematuria, flank pain , discharge or CVA tenderness Musculoskeletal: As per HPI Skin: No rash, bruising or hives Neuro: No headache, dizziness, syncope, seizure, focal weakness Endocrine: No polyuria, polydipsia, temperature intolerance Psych: No hallucination, depression, anxiety or suicidal ideation PMH/Family/Social Past Medical History systolic chf with life vest, gout, hyperlipidemia Medications Current Medications Ondansetron HCl (Zofran Inj) 4 mg BRIDGE ORDER PRN IV NAUSEA/VOMITING; Start 08/03/18 at 22:00; Stop 08/04/18 at 21:59 Acetaminophen (Tylenol Tab) 650 mg ER BRIDGE PRN PO .MILD PAIN 1-3 OR TEMP; Start 08/03/18 at 22:00; Stop 08/04/18 at 21:59 Atorvastatin Calcium (Lipitor) 10 mg QHS PO ; Start 08/04/18 at 21:00 Digoxin (Digoxin) 0.125 mg DAILY@1300 PO ; Start 08/04/18 at 13:00 Metoprolol Succinate (Toprol Xl) 25 mg QPM PO ; Start 08/04/18 at 21:00 IV Flush (NS 3 ml) 3 ml PER PROTOCOL IV ; Start 08/03/18 at 22:30 Ondansetron HCl (Zofran Inj) 4 mg Q6H PRN IV NAUSEA/VOMITING; Start 08/03/18 at 22:30 Acetaminophen (Tylenol Tab) 650 mg Q6H PRN PO .PAIN 1-3 OR TEMP; Start 08/03/18 at 22:30 Acetaminophen/ Hydrocodone Bitart ([place] (5/325)) 1 tab Q6H PRN PO .MOD PAIN 4- 6; Start 08/03/18 at 22:30 Pantoprazole (Protonix Tab) 40 mg DAILY@06 PO ; Start 08/04/18 at 06:00 Coded Allergies: No Known Allergy (Unverified , 08/03/18) Past Surgical History Past Surgical Hx: no surgical history Family History Significant Family History: no pertinent family hx Social History Alcohol Use: other (in the past) Smoking Status: Former smoker Exam/Review of Systems Vital Signs Vitals Vital Signs Date Temp Pulse Resp B/P (MAP) Pulse Ox O2 O2 Flow FiO2 Time Delivery Rate 08/03/18 70 16 122/61 99 Nasal 22:30 (81) Cannula 08/03/18 2.0 20:30 08/03/18 21 17:05 08/03/18 101.5 16:11 Exam Exam General: Patient is a pleasant male currently lying in bed in no acute distress HEENT: Atraumatic, normocephalic. The pupils are equal, round and reactive. Extraocular motor are intact Neck: Supple with full range of motion. No rigidity or meningismus Chest: Nontender Lungs: Clear to auscultation bilaterally no crackles rales or wheezing, nonlabored breathing Heart: Normal S1-S2, Regular rhythm and rate. Abdomen: Obese, soft , nontender, nondistended , bowel sounds are present. No guarding no rebound tenderness , No masses or organomegaly. No costovertebral temporal angle mass Extremities: Right ankle swelling, tender to touch, mild erythema noted, not warm to touch Neurologic: Normal mental status, speech normal, cranial nerves II through XII are intact, motor and sensory are intact, no focal weakness Additional Comments PROCEDURE: XR Right Ankle Complete, 3 or More Views CLINICAL INDICATION: Swelling. TECHNIQUE: Frontal, lateral and oblique views of the right ankle. COMPARISON: None FINDINGS: BONES/JOINTS: Small ankle joint effusion. Mild degenerative narrowing of the ankle joint. No fracture or acute osseous abnormality demonstrated. 3 mm plantar calcaneal spur. No dislocation. SOFT TISSUES: Soft tissue swelling medially and laterally. IMPRESSION: 1. Soft tissue swelling medially and laterally. 2. Small ankle joint effusion. 3. Mild degenerative narrowing of the ankle joint. 4. No fracture or acute osseous abnormality demonstrated. RPTAT: [facility] Akbar Altman, Physician Commanding [employer] Date Time Electronically viewed and signed by Akbra Altman, Physician Commanding [employer] on 08/03/2018 17:07 RmC/ CC: PANFILO RECINOS DO [id number] PROCEDURE: XR Chest. CLINICAL INDICATION: Shortness of breath, cough TECHNIQUE: Single frontal radiograph of the chest. COMPARISON: DR CHEST 08/03/2018 FINDINGS: The lungs are clear. No pleural effusion. No pneumothorax. Mild cardiomegaly. Vascular calcifications of the aorta are present compatible with athero sclerosis. IMPRESSION: No acute air space infiltrates. Mild cardiomegaly. RPTAT: [facility] .Reji Bergman MD, MD Date Time Electronically viewed and signed by .Reji Bergman MD, on 08/03/2018 23:06 .B/ CC: PEACE NOLASCO [id number] PEACE NOLASCO Aug 04, 2018 00:05
--- NOTE | 2018-08-04 00:16 | CONS ---
Assessment/Plan Assessment/Plan Hospital Course (Demo Recall) This is a 53-year-old male who presented to the emergency department with 4 days of worsening right ankle pain. He does have a history of gout. However given the fevers and elevated ESR infection needs to be ruled out as well. The right ankle was aspirated. Limited fluid was obtained, 2.5 mL. Per the lab this was not enough to run a cell count with differential. Therefore cultures and aerobic, anaerobic and crystals will be run. Plan: Patient is already admitted to medicine Can start antibiotics as cultures have been obtained Follow-up crystals Follow-up cultures If cultures are negative by 48-72 hours he can be discharged with treatment for crystal arthropathy N.p.o. at midnight in case septic arthritis of the right ankle Assessment/Plan (Daily) Right ankle aspiration procedure: Risks and benefits aspiration reviewed with patient. The risks include infection, failure, pain, swelling, nerve/tendon/ligament damage. The patient verbalized understanding and verbal consent was obtained prior to procedure. The right ankle was prepped in a sterile fashion with alcohol and betadine the site of aspiration was confirmed. Anterolateral approach was used. The skin and capsule was anesthetized with 3mL 1% lidocaine careful not to inject intra-vita cularly. The right ankle was aspirated. 2.5 mL of cloudy and thick synovial fluid was aspirated. Good hemostasis was achieved and no complications noted. The patient tolerated the procedure well. Limit activity and ice for 24-48 hours Consultation Date/Type/Reason Admit Date/Time Date of Consultation: Aug 04, 2018 Reason for Consultation Right ankle pain and swelling Date/Time of Note DATE: 08/04/18 TIME: 00:06 Hx of Present Illness This is a 53-year-old male who presented to the ED for right ankle pain. The pain started 4 days ago. He denies any injury. Patient does have history of CHF and gout. The pain was increasing to the point where he had difficulty be aring weight. He states that he had fevers. He has had gout in multiple joints before including the right ankle. Since arriving in the emergency department he received antibiotics as well as steroids. Patient states his pain is much improved since treated with those medications. Denies numbness and tingling. Patient denies shortness of breath, chest pain, nausea/vomiting, constipation, diarrhea, numbness, and tingling. Past Medical History CHF gout Home Meds Reported Medications Metoprolol Succinate* (Toprol XL*) 25 Mg Tab.sr.24h, 25 MG PO QPM, #30 TAB 08/03/18 Atorvastatin Calcium (Atorvastatin Calcium) 10 Mg Tablet, 10 MG PO QHS, #30 TAB 08/03/18 Lisinopril* (Lisinopril*) 10 Mg Tablet, 10 MG PO DAILY, #30 TAB 08/03/18 Digoxin* (Digitek*) 125 Mcg Tablet, 0.125 MG PO DAILY, TAB 08/03/18 Ergocalciferol (Vitamin D2) (VITAMIN D2) 2,000 Unit Tablet, 2000 UNIT PO DAILY, TAB 08/03/18 Ivabradine HCl (Corlanor) 5 Mg Tablet, 5 MG PO BID, #60 TAB 08/03/18 Furosemide* (Furosemide*) 20 Mg Tablet, 20 MG PO DAILY, #60 TAB 08/03/18 Allopurinol* (Allopurinol*) 100 Mg Tablet, 100 MG PO DAILY, TAB 08/03/18 Aspirin (Low Dose Aspirin) 81 Mg Tablet.dr, 81 MG PO DAILY, #30 TAB 08/03/18 Discontinued Scripts Aspirin* (Aspirin* EC) 81 Mg Tablet.dr, 81 MG PO DAILY for 90 Days, #90 TAB 5 Refills Prov:AHMET SOLIS MD 06/22/18 Furosemide* (Lasix*) 20 Mg Tablet, 20 MG PO DAILY for 30 Days, #30 TAB 2 Refills Prov:AHMET SOLIS MD 06/22/18 Metoprolol Succinate* (Toprol XL*) 50 Mg Tab.er.24h, 50 MG PO DAILY for 90 Days, #90 TAB 5 Refills Prov:AHMTE SOLIS MD 06/22/18 Lisinopril* (Lisinopril*) 10 Mg Tablet, 10 MG PO DAILY for 90 Days, #90 TAB 5 Refills Prov:AHMET SOLIS MD 06/22/18 Atorvastatin (Atorvastatin) 10 Mg Tablet, 10 MG PO HS for 60 Days, #60 TAB 5 Refills Prov:AHMET SOLIS MD 06/22/18 Medications Current Medications Ondansetron HCl (Zofran Inj) 4 mg BRIDGE ORDER PRN IV NAUSEA/VOMITING; Start 08/03/18 at 22:00; Stop 08/04/18 at 21:59 Acetaminophen (Tylenol Tab) 650 mg ER BRIDGE PRN PO .MILD PAIN 1-3 OR TEMP; Start 08/03/18 at 22:00; Stop 08/04/18 at 21:59 Atorvastatin Calcium (Lipitor) 10 mg QHS PO ; Start 08/04/18 at 21:00 Digoxin (Digoxin) 0.125 mg DAILY@1300 PO ; Start 08/04/18 at 13:00 Metoprolol Succinate (Toprol Xl) 25 mg QPM PO ; Start 08/04/18 at 21:00 IV Flush (NS 3 ml) 3 ml PER PROTOCOL IV ; Start 08/03/18 at 22:30 Ondansetron HCl (Zofran Inj) 4 mg Q6H PRN IV NAUSEA/VOMITING; Start 08/03/18 at 22:30 Acetaminophen (Tylenol Tab) 650 mg Q6H PRN PO .PAIN 1-3 OR TEMP; Start 08/03/18 at 22:30 Acetaminophen/ Hydrocodone Bitart ([place] (5/325)) 1 tab Q6H PRN PO .MOD PAIN 4- 6; Start 08/03/18 at 22:30 Pantoprazole (Protonix Tab) 40 mg DAILY@06 PO ; Start 08/04/18 at 06:00 Allergies: Coded Allergies: No Known Allergy (Unverified , 08/03/18) Past Surgical History Past Surgical Hx: noncontributory Social History Smoking Status: Never smoker Drug Use: none Exam/Review of Systems Exam Vitals Vital Signs Date Temp Pulse Resp B/P (MAP) Pulse Ox O2 O2 Flow FiO2 Time Delivery Rate 08/03/18 70 16 122/61 99 Nasal 22:30 (81) Cannula 08/03/18 2.0 20:30 08/03/18 21 17:05 08/03/18 101.5 16:11 Exam General: Awake, alert, in no acute distress, pleasant and cooperative Heart: regular rhythm Lungs: breathing comfortably, no tachypnea or dyspnea MUSCULOSKELETAL: Right lower extremity: Skin is intact. There is significant swelling over the ankle and foot. There is significant pitting edema over the lateral malleolus. There is tenderness to palpation along the anterior ankle joint line as well as the lateral and medial ankle. There is very slight erythematous character to the skin over the ankle. There is no significant warmth. Axial loading causes no pain. Able to plantarflex to 30 degrees and dorsiflex to 5 degrees without pain. Sensation intact to light touch in a sural, saphenous, deep peroneal, superficial peroneal, medial and lateral plantar nerve distribution. Motor is intact, patient able to dorsiflex and plantarflex ankle and extend and flex great toe. Dorsalis Pedis pulse +2, Brisk capillary refill. Compartments are soft. Calves non-tender to palpation bilaterally. Results Result Diagram: 08/03/18 1600 08/03/18 1600 Results 24hrs Laboratory Tests Test 08/03/18 15:45 08/03/18 16:00 08/03/18 17:46 POC Venous Lactate 1.5 0.8 White Blood Count 10.4 Red Blood Count 5.26 Hemoglobin 14.7 Hematocrit 45.4 Mean Corpuscular Volume 86.3 Mean Corpuscular Hemoglobin 27.9 L Mean Corpuscular Hemoglobin Concent 32.4 Red Cell Distribution Width 13.9 Platelet Count 177 Mean Platelet Volume 10.8 H Immature Granulocytes % 0.700 H Neutrophils % Segmented Neutrophils % (Manual) 51 Lymphocytes % Lymphocytes % (Manual) 17 Reactive Lymphocytes % (Manual) 15 H Monocytes % Monocytes % (Manual) 16 H Eosinophils % Eosinophils % (Manual) 1 Basophils % Nucleated Red Blood Cells % 0.0 Immature Granulocytes # 0.070 H Neutrophils # Lymphocytes (Manual) 1.7 Lymphocytes # Reactive Lymphocytes # 1.5 H Monocytes # Monocytes # (Manual) 1.6 H Eosinophils # Basophils # Nucleated Red Blood Cells # Platelet Estimate NORMAL Erythrocyte Sedimentation Rate 27 H Prothrombin Time 13.0 Prothrombin Time Ratio 1.0 INR International Normalized Ratio 0.97 Activated Partial Thromboplast Time 34.9 Sodium Level 134 L Potassium Level 4.9 Chloride Level 96 L Carbon Dioxide Level 27 Anion Gap 11 Blood Urea Nitrogen 32 H Creatinine 1.35 H Est Glomerular Filtrat Rate mL/min 55 L Glucose Level 93 Uric Acid 8.0 H Calcium Level 9.4 Total Bilirubin 1.2 Direct Bilirubin 0.00 Indirect Bilirubin 1.2 H Aspartate Amino Transf (AST/SGOT) 24 Alanine Aminotransferase (ALT/SGPT) 17 Alkaline Phosphatase 65 Total Protein 8.0 Albumin 4.4 Globulin 3.60 H Albumin/Globulin Ratio 1.22 Imaging Imaging 3 views of the right ankle were personally reviewed. Demonstrate diffuse d egenerative changes in the ankle and hindfoot joint. There is a small ankle effusion. No dislocation or fracture. Medications Medication Current Medications Ondansetron HCl (Zofran Inj) 4 mg BRIDGE ORDER PRN IV NAUSEA/VOMITING; Start 08/03/18 at 22:00; Stop 08/04/18 at 21:59 Acetaminophen (Tylenol Tab) 650 mg ER BRIDGE PRN PO .MILD PAIN 1-3 OR TEMP; Start 08/03/18 at 22:00; Stop 08/04/18 at 21:59 Atorvastatin Calcium (Lipitor) 10 mg QHS PO ; Start 08/04/18 at 21:00 Digoxin (Digoxin) 0.125 mg DAILY@1300 PO ; Start 08/04/18 at 13:00 Metoprolol Succinate (Toprol Xl) 25 mg QPM PO ; Start 08/04/18 at 21:00 IV Flush (NS 3 ml) 3 ml PER PROTOCOL IV ; Start 08/03/18 at 22:30 Ondansetron HCl (Zofran Inj) 4 mg Q6H PRN IV NAUSEA/VOMITING; Start 08/03/18 at 22:30 Acetaminophen (Tylenol Tab) 650 mg Q6H PRN PO .PAIN 1-3 OR TEMP; Start 08/03/18 at 22:30 Acetaminophen/ Hydrocodone Bitart ([place] (5/325)) 1 tab Q6H PRN PO .MOD PAIN 4- 6; Start 08/03/18 at 22:30 Pantoprazole (Protonix Tab) 40 mg DAILY@06 PO ; Start 08/04/18 at 06:00 MONCHO MENG MD Aug 04, 2018 00:16
[2018-08-04] MEDS ORDERED: SOD CHLORIDE 0.9% 1,000 ML IV SCH (00:30)
[2018-08-04] MEDS ORDERED: VANCOMYCIN IV PER PHARMACY XX SCH (01:00)
[2018-08-04 01:10] VITALS: BP 130/60; PULSE 78; RESP 18
[2018-08-04 01:41] VITALS: Ht 172.7 cm; Wt 109.9 kg
[2018-08-04] MEDS: CEFTRIAXONE 2 GM/50 ML (PMX) 50 ML IVPB SCH (03:11)
[2018-08-04] MEDS: VANCOMYCIN HCL 1.5 GM in SOD CHLORIDE 0.9% 250 ML IVPB SCH ×2 (03:56→15:20)
[2018-08-04] MEDS ORDERED: COLCHICINE 0.6 MG TAB PO ONE (04:30)
[2018-08-04] MEDS: PANTOPRAZOLE (EC) 40 MG TAB PO SCH (05:51)
[2018-08-04 08:12] VITALS: BP 130/62; PULSE 77; RESP 19
[2018-08-04] MEDS: IVABRADINE HCL 5 MG TABLET PO SCH ×2 (09:32→20:51)
[2018-08-04] MEDS: ALLOPURINOL 100 MG TAB PO SCH (09:33)
--- NOTE | 2018-08-04 09:52 | PN ---
Date/Time of Note Date/Time of Note DATE: 08/04/18 TIME: 09:51 Assessment/Plan VTE Prophylaxis SCD applied (from Nsg): Yes (Left lower extremity) Pharmacological prophylaxis: NA/contraindicated Pharm contraindication: surgical contra Lines/Catheters IV Catheter Type (from Nrsg): Peripheral IV Assessment/Plan Hospital Course SUBJECTIVE: No acute overnight episodes. Patient with no fevers. With minimal pain on right foot. OBJECTIVE: Vital signs-see below PHYSICAL EXAM: Constitutional: Obese male, lying in bed comfortably. Psych: nl mood/affect, no complaints Head: atraumatic, normocephalic Eyes: nl conjunctiva, nl sclera ENMT: mucosa pink and moist, nl external ears & nose Neck: non-tender, supple Respiratory: Diminished bibasilar, normal air movement Cardiovascular: nl pulses, regular rate and rhythm Gastrointestinal: non-tender, soft, bowel sounds active in all 4 quadrants. Musculoskeletal/extremities: Rt foot/ankle edematous/red//tender. motor strength equal bilaterally, no focal deficit. Normal pulses,no cyanosis, no edema. Neurological: Alert oriented 3,nl speech, nl strength Skin: nl turgor ASSESSMENT/PLAN: 53-year-old male with a history of dyslipidemia, CHF, hypertension, gout, admitted with worsening right ankle pain/swelling/tenderness times 4-day duration, found to have sepsis. 1. Sepsis, likely culprit: Right ankle cellulitis/probably septic arthritis. -Continue current antibiotics -Follow-up final cultures 2. Right ankle cellulitis w/ gout flares: Initial flow study with a significant white count, pointing towards septic arthritis -Orthopedics notes reviewed, patient might require surgical intervention, will follow up recommendations -Continue broad-spectrum antibiotics and will call ID consult for antibiotic management. 3. Chronic systolic congestive heart failure, last known EF 30% -Currently appears euvolemic. Patient has a LifeVest. -Resume Lasix and NANDO inhibitors as kidney function is stable now. Continue digoxin, beta-blockers. -Cardiology consult 4. Gout flares -Pain is well controlled -Patient received steroids in ED. Orthopedic surgery would like to hold off steroids at current time. -Continue colchicine times 3-day. 5. Acute kidney injury, likely hemodynamic -Resolved. Will resume NANDO inhibitors and will monitor renal function. 6. Hypertension -Stable -Continue home medications 7. Dyslipidemia -On statin 8. Obesity with BMI 36.8 -Weight reduction advised. DVT prophylaxis: SCDs LLE PUD prophylaxis: Protonix CODE STATUS: Full code Diet: N.p.o. for possible surgical intervention. Disposition: Continue current management. Follow-up orthopedic recommendation. Patient with severe chronic heart failure with LifeVest in place, at this time I will request cardiology evaluation in anticipation for any surgical need as such patient may need a cardiology clearance. We will also order EKG, serial troponin to start with. Patient was seen in collaboration with Dr. Palomares. Result Diagram: 08/04/18 0502 08/04/18 0502 Results 24hrs Laboratory Tests Test 08/03/18 15:45 08/03/18 16:00 08/03/18 17:46 08/03/18 23:30 POC Venous 1.5 0.8 Lactate White Blood Count 10.4 Red Blood Count 5.26 Hemoglobin 14.7 Hematocrit 45.4 Mean Corpuscular 86.3 Volume Mean Corpuscular 27.9 L Hemoglobin Mean Corpuscular 32.4 Hemoglobin Concen t Red Cell 13.9 Distribution Width Platelet Count 177 Mean Platelet 10.8 H Volume Immature 0.700 H Granulocytes % Neutrophils % Segmented 51 Neutrophils % (Manual) Lymphocytes % Lymphocytes % 17 (Manual) Reactive 15 H Lymphocytes % (Manual) Monocytes % Monocytes % 16 H (Manual) Eosinophils % Eosinophils % 1 (Manual) Basophils % Nucleated Red 0.0 Blood Cells % Immature 0.070 H Granulocytes # Neutrophils # Lymphocytes 1.7 (Manual) Lymphocytes # Reactive 1.5 H Lymphocytes # Monocytes # Monocytes # 1.6 H (Manual) Eosinophils # Basophils # Nucleated Red Blood Cells # Platelet Estimate NORMAL Erythrocyte 27 H Sedimentation Rate Prothrombin Time 13.0 Prothrombin Time 1.0 Ratio INR International 0.97 Normalized Ratio Activated 34.9 Partial Thrombopl ast Time Sodium Level 134 L Potassium Level 4.9 Chloride Level 96 L Carbon Dioxide 27 Level Anion Gap 11 Blood Urea 32 H Nitrogen Creatinine 1.35 H Est Glomerular 55 L Filtrat Rate mL/min Glucose Level 93 Uric Acid 8.0 H Calcium Level 9.4 Total Bilirubin 1.2 Direct Bilirubin 0.00 Indirect 1.2 H Bilirubin Aspartate Amino 24 Transf (AST/SGOT) Alanine 17 Aminotransferase (ALT/SGPT) Alkaline 65 Phosphatase Total Protein 8.0 Albumin 4.4 Globulin 3.60 H Albumin/Globulin 1.22 Ratio Synovial Fluid RIGHT KNEE Source Synovial Fluid ORANGE Color Synovial Fluid Turbid Appearance Synovial Fluid 2.5 Volume Synovial Fluid 46114 H WBC Synovial Fluid 96.1 H Polynuclear WBCs % Synovial Fluid 3.9 Mononuclear WBCs % Synovial Fluid URIC Crystals ACID CRYSTALS H Test 08/04/18 01:50 08/04/18 05:02 Urine Color YELLOW Urine Clarity CLEAR Urine pH 5.0 Urine Specific 1.017 [place] Urine Ketones NEGATIVE Urine Nitrite NEGATIVE Urine Bilirubin NEGATIVE Urine NEGATIVE Urobilinogen Urine Leukocyte NEGATIVE Esterase Urine Hemoglobin NEGATIVE Urine Glucose NEGATIVE Urine Total NEGATIVE Protein White Blood Count 9.3 Red Blood Count 4.70 Hemoglobin 13.4 L Hematocrit 40.9 L Mean Corpuscular 87.0 Volume Mean Corpuscular 28.5 L Hemoglobin Mean Corpuscular 32.8 Hemoglobin Concen t Red Cell 13.7 Distribution Width Platelet Count 169 Mean Platelet 11.4 H Volume Immature 0.400 Granulocytes % Neutrophils % 84.4 H Lymphocytes % 11.7 L Monocytes % 3.4 Eosinophils % 0.0 Basophils % 0.1 Nucleated Red 0.0 Blood Cells % Immature 0.040 H Granulocytes # Neutrophils # 7.8 H Lymphocytes # 1.1 Monocytes # 0.3 Eosinophils # 0.0 Basophils # 0.0 Nucleated Red 0.0 Blood Cells # Sodium Level 138 Potassium Level 4.7 Chloride Level 101 Carbon Dioxide 28 Level Anion Gap 9 Blood Urea 35 H Nitrogen Creatinine 1.18 Est Glomerular > 60 Filtrat Rate mL/min Glucose Level 159 Hemoglobin A1c 5.5 Calcium Level 9.3 Magnesium Level 2.2 Total Bilirubin 0.4 Direct Bilirubin 0.00 Indirect 0.4 Bilirubin Aspartate Amino 20 Transf (AST/SGOT) Alanine 13 Aminotransferase (ALT/SGPT) Alkaline 52 Phosphatase Total Protein 7.2 Albumin 3.9 Globulin 3.30 H Albumin/Globulin 1.18 Ratio Thyroid 0.241 L Stimulating Hormone (TSH) Free Thyroxine 1.88 Index Thyroxine (T4) 5.1 L Triiodothyronine 36.8 (T3) Uptake Exam/Review of Systems Exam Vitals Vital Signs Date Temp Pulse Resp B/P (MAP) Pulse Ox O2 O2 Flow FiO2 Time Delivery Rate 08/04/18 97.8 77 19 130/62 94 08:12 (84) 08/04/18 Room Air 00:43 08/03/18 2.0 20:30 08/03/18 21 17:05 Intake and Output 08/03/18 08/03/18 08/04/18 1515:00 23:00 07:00 IntakeIntake Total 50 ml BalanceBalance 50 ml Results Results 24hrs Laboratory Tests Test 08/03/18 15:45 08/03/18 16:00 08/03/18 17:46 08/03/18 23:30 POC Venous 1.5 0.8 Lactate White Blood Count 10.4 Red Blood Count 5.26 Hemoglobin 14.7 Hematocrit 45.4 Mean Corpuscular 86.3 Volume Mean Corpuscular 27.9 L Hemoglobin Mean Corpuscular 32.4 Hemoglobin Concen t Red Cell 13.9 Distribution Width Platelet Count 177 Mean Platelet 10.8 H Volume Immature 0.700 H Granulocytes % Neutrophils % Segmented 51 Neutrophils % (Manual) Lymphocytes % Lymphocytes % 17 (Manual) Reactive 15 H Lymphocytes % (Manual) Monocytes % Monocytes % 16 H (Manual) Eosinophils % Eosinophils % 1 (Manual) Basophils % Nucleated Red 0.0 Blood Cells % Immature 0.070 H Granulocytes # Neutrophils # Lymphocytes 1.7 (Manual) Lymphocytes # Reactive 1.5 H Lymphocytes # Monocytes # Monocytes # 1.6 H (Manual) Eosinophils # Basophils # Nucleated Red Blood Cells # Platelet Estimate NORMAL Erythrocyte 27 H Sedimentation Rate Prothrombin Time 13.0 Prothrombin Time 1.0 Ratio INR International 0.97 Normalized Ratio Activated 34.9 Partial Thrombopl ast Time Sodium Level 134 L Potassium Level 4.9 Chloride Level 96 L Carbon Dioxide 27 Level Anion Gap 11 Blood Urea 32 H Nitrogen Creatinine 1.35 H Est Glomerular 55 L Filtrat Rate mL/min Glucose Level 93 Uric Acid 8.0 H Calcium Level 9.4 Total Bilirubin 1.2 Direct Bilirubin 0.00 Indirect 1.2 H Bilirubin Aspartate Amino 24 Transf (AST/SGOT) Alanine 17 Aminotransferase (ALT/SGPT) Alkaline 65 Phosphatase Total Protein 8.0 Albumin 4.4 Globulin 3.60 H Albumin/Globulin 1.22 Ratio Synovial Fluid RIGHT KNEE Source Synovial Fluid ORANGE Color Synovial Fluid Turbid Appearance Synovial Fluid 2.5 Volume Synovial Fluid 02628 H WBC Synovial Fluid 96.1 H Polynuclear WBCs % Synovial Fluid 3.9 Mononuclear WBCs % Synovial Fluid URIC Crystals ACID CRYSTALS H Test 08/04/18 01:50 08/04/18 05:02 Urine Color YELLOW Urine Clarity CLEAR Urine pH 5.0 Urine Specific 1.017 [place] Urine Ketones NEGATIVE Urine Nitrite NEGATIVE Urine Bilirubin NEGATIVE Urine NEGATIVE Urobilinogen Urine Leukocyte NEGATIVE Esterase Urine Hemoglobin NEGATIVE Urine Glucose NEGATIVE Urine Total NEGATIVE Protein White Blood Count 9.3 Red Blood Count 4.70 Hemoglobin 13.4 L Hematocrit 40.9 L Mean Corpuscular 87.0 Volume Mean Corpuscular 28.5 L Hemoglobin Mean Corpuscular 32.8 Hemoglobin Concen t Red Cell 13.7 Distribution Width Platelet Count 169 Mean Platelet 11.4 H Volume Immature 0.400 Granulocytes % Neutrophils % 84.4 H Lymphocytes % 11.7 L Monocytes % 3.4 Eosinophils % 0.0 Basophils % 0.1 Nucleated Red 0.0 Blood Cells % Immature 0.040 H Granulocytes # Neutrophils # 7.8 H Lymphocytes # 1.1 Monocytes # 0.3 Eosinophils # 0.0 Basophils # 0.0 Nucleated Red 0.0 Blood Cells # Sodium Level 138 Potassium Level 4.7 Chloride Level 101 Carbon Dioxide 28 Level Anion Gap 9 Blood Urea 35 H Nitrogen Creatinine 1.18 Est Glomerular > 60 Filtrat Rate mL/min Glucose Level 159 Hemoglobin A1c 5.5 Calcium Level 9.3 Magnesium Level 2.2 Total Bilirubin 0.4 Direct Bilirubin 0.00 Indirect 0.4 Bilirubin Aspartate Amino 20 Transf (AST/SGOT) Alanine 13 Aminotransferase (ALT/SGPT) Alkaline 52 Phosphatase Total Protein 7.2 Albumin 3.9 Globulin 3.30 H Albumin/Globulin 1.18 Ratio Thyroid 0.241 L Stimulating Hormone (TSH) Free Thyroxine 1.88 Index Thyroxine (T4) 5.1 L Triiodothyronine 36.8 (T3) Uptake Medications Medication Current Medications Ondansetron HCl (Zofran Inj) 4 mg BRIDGE ORDER PRN IV NAUSEA/VOMITING; Start 08/03/18 at 22:00; Stop 08/04/18 at 21:59 Acetaminophen (Tylenol Tab) 650 mg ER BRIDGE PRN PO .MILD PAIN 1-3 OR TEMP; Start 08/03/18 at 22:00; Stop 08/04/18 at 21:59 Atorvastatin Calcium (Lipitor) 10 mg QHS PO ; Start 08/04/18 at 21:00 Digoxin (Digoxin) 0.125 mg DAILY@1300 PO ; Start 08/04/18 at 13:00 Metoprolol Succinate (Toprol Xl) 25 mg QPM PO ; Start 08/04/18 at 21:00 IV Flush (NS 3 ml) 3 ml PER PROTOCOL IV ; Start 08/03/18 at 22:30 Ondansetron HCl (Zofran Inj) 4 mg Q6H PRN IV NAUSEA/VOMITING; Start 08/03/18 at 22:30 Acetaminophen (Tylenol Tab) 650 mg Q6H PRN PO .PAIN 1-3 OR TEMP; Start 08/03/18 at 22:30 Acetaminophen/ Hydrocodone Bitart ([place] (5/325)) 1 tab Q6H PRN PO .MOD PAIN 4- 6; Start 08/03/18 at 22:30 Pantoprazole (Protonix Tab) 40 mg DAILY@06 PO Last administered on 08/04/18at 05:51; Admin Dose 40 MG; Start 08/04/18 at 06:00 Sodium Chloride 1,000 ml @ 60 mls/hr [id number] IV Last administered on 08/04/18at 02:06; Admin Dose 60 MLS/HR; Start 08/04/18 at 00:30; Stop 08/04/18 at 17:09 Vancomycin HCl (Vanco Iv Per Pharmacy) VANCOMYCIN PER PHARMACY PER PROTOCOL XX ; Start 08/04/18 at 01:00 Ceftriaxone Sodium 50 ml @ 100 mls/hr Q24H IVPB Last administered on 08/04/18at 03:11; Admin Dose 100 MLS/HR; Start 08/04/18 at 01:00 Allopurinol (Zyloprim) 100 mg DAILY PO ; Start 08/04/18 at 09:00 Vancomycin HCl 1.5 gm/Sodium Chloride 250 ml @ 83.333 mls/ hr Q12H IVPB Last administered on 08/04/18at 03:56; Admin Dose 83.333 MLS/HR; Start 08/04/18 at 03:00 Ivabradine (Corlanor) 5 mg BID PO ; Start 08/04/18 at 09:00 Colchicine (Colchicine) 0.6 mg DAILY PO ; Start 08/05/18 at 09:00; Stop 08/07/18 at 08:59 Miscellaneous Information Patients own medicat... BID@10,16 XX ; Start 08/04/18 at 10:00 JAVIER LAM NP Aug 04, 2018 09:52
[2018-08-04] MEDS: FUROSEMIDE 20 MG TAB PO SCH (11:51)
--- NOTE | 2018-08-04 11:59 | CONS ---
Assessment/Plan Cardiology NYHA: II Heart Failure Type: Chronic Heart Failure Type: Systolic Assessment/Plan Hospital Course (Demo Recall) Preoperative cardiac risk stratification Possible septic arthritis Compensated chronic systolic congestive heart failure Cardiomyopathy Hypertension -Patient with good exercise tolerance, in discussion with patient's primary student records coordinator Dr Veloz, patient with recent stress test done within the past month with no evidence of ischemia. Patient without evidence of decompensated congestive heart failure. Given his multiple risk factors, patient is at an intermediate risk for any untoward cardiac events for orthopedic surgery. The b enefits likely outweigh the risks. -Continue beta-susana and titrate as blood pressure permits. -Patient did have a LifeVest as an outpatient, he is removed it secondary to low battery. I did discuss with the nursing staff, patient with nonfunctional LifeVest, needs to be on telemetry monitoring. -Dr Veloz to resume care 08/05/2018 Consultation Date/Type/Reason Admit Date/Time Type of Consult Cardiology Reason for Consultation Preoperative cardiac risk stratification Date/Time of Note DATE: 08/04/18 TIME: 11:52 Hx of Present Illness This is a 53-year-old male with past medical history of cardiomyopathy, systolic congestive heart failure, hypertension who presents with right lower examinee pain. Patient undergoing workup with possible septic arthritis. He is planned for orthopedic surgery of his right lower extremity because of worsening status. Cardiology consultation was requested for preoperative cardiac risk medication. Prior to this episode of orthopedic pathology, patient was ambulatory. He is able to climb 2 flights of stairs without chest pains. He does get occasional shortness of breath with activity. 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 Denies dizziness or lightheadedness. 12 point review of systems was performed with all pertinent positives and negati ves mentioned above and all else is negative Past Medical History Medical History: congestive heart failure, hypertension Home Meds Reported Medications Metoprolol Succinate* (Toprol XL*) 25 Mg Tab.sr.24h, 25 MG PO QPM, #30 TAB 08/03/18 Atorvastatin Calcium (Atorvastatin Calcium) 10 Mg Tablet, 10 MG PO QHS, #30 TAB 08/03/18 Lisinopril* (Lisinopril*) 10 Mg Tablet, 10 MG PO DAILY, #30 TAB 08/03/18 Digoxin* (Digitek*) 125 Mcg Tablet, 0.125 MG PO DAILY, TAB 08/03/18 Ergocalciferol (Vitamin D2) (VITAMIN D2) 2,000 Unit Tablet, 2000 UNIT PO DAILY, TAB 08/03/18 Ivabradine HCl (Corlanor) 5 Mg Tablet, 5 MG PO BID, #60 TAB 08/03/18 Furosemide* (Furosemide*) 20 Mg Tablet, 20 MG PO DAILY, #60 TAB 08/03/18 Allopurinol* (Allopurinol*) 100 Mg Tablet, 100 MG PO DAILY, TAB 08/03/18 Aspirin (Low Dose Aspirin) 81 Mg Tablet.dr, 81 MG PO DAILY, #30 TAB 08/03/18 Discontinued Scripts Aspirin* (Aspirin* EC) 81 Mg Tablet.dr, 81 MG PO DAILY for 90 Days, #90 TAB 5 Refills Prov:AHMET SOLIS MD 06/22/18 Furosemide* (Lasix*) 20 Mg Tablet, 20 MG PO DAILY for 30 Days, #30 TAB 2 Refills Prov:AHMET SOLIS MD 06/22/18 Metoprolol Succinate* (Toprol XL*) 50 Mg Tab.er.24h, 50 MG PO DAILY for 90 Days, #90 TAB 5 Refills Prov:AHMET SOLIS MD 06/22/18 Lisinopril* (Lisinopril*) 10 Mg Tablet, 10 MG PO DAILY for 90 Days, #90 TAB 5 Refills Prov:AHMET SOLIS MD 06/22/18 Atorvastatin (Atorvastatin) 10 Mg Tablet, 10 MG PO HS for 60 Days, #60 TAB 5 Refills Prov:AHMET SOLIS MD 06/22/18 Medications Current Medications Ondansetron HCl (Zofran Inj) 4 mg BRIDGE ORDER PRN IV NAUSEA/VOMITING; Start 08/03/18 at 22:00; Stop 08/04/18 at 21:59 Atorvastatin Calcium (Lipitor) 10 mg QHS PO ; Start 08/04/18 at 21:00 Digoxin (Digoxin) 0.125 mg DAILY@1300 PO ; Start 08/04/18 at 13:00 Metoprolol Succinate (Toprol Xl) 25 mg QPM PO ; Start 08/04/18 at 21:00 IV Flush (NS 3 ml) 3 ml PER PROTOCOL IV ; Start 08/03/18 at 22:30 Ondansetron HCl (Zofran Inj) 4 mg Q6H PRN IV NAUSEA/VOMITING; Start 08/03/18 at 22:30 Acetaminophen (Tylenol Tab) 650 mg Q6H PRN PO .PAIN 1-3 OR TEMP; Start 08/03/18 at 22:30 Acetaminophen/ Hydrocodone Bitart ([place] (5/325)) 1 tab Q6H PRN PO .MOD PAIN 4- 6; Start 08/03/18 at 22:30 Pantoprazole (Protonix Tab) 40 mg DAILY@06 PO Last administered on 08/04/18at 05:51; Admin Dose 40 MG; Start 08/04/18 at 06:00 Sodium Chloride 1,000 ml @ 60 mls/hr [id number] IV Last administered on 08/04/18at 02:06; Admin Dose 60 MLS/HR; Start 08/04/18 at 00:30; Stop 08/04/18 at 17:09 Vancomycin HCl (Vanco Iv Per Pharmacy) VANCOMYCIN PER PHARMACY PER PROTOCOL XX ; Start 08/04/18 at 01:00 Ceftriaxone Sodium 50 ml @ 100 mls/hr Q24H IVPB Last administered on 08/04/18at 03:11; Admin Dose 100 MLS/HR; Start 08/04/18 at 01:00 Allopurinol (Zyloprim) 100 mg DAILY PO Last administered on 08/04/18at 09:33; Admin Dose 100 MG; Start 08/04/18 at 09:00 Vancomycin HCl 1.5 gm/Sodium Chloride 250 ml @ 83.333 mls/ hr Q12H IVPB Last administered on 08/04/18at 03:56; Admin Dose 83.333 MLS/HR; Start 08/04/18 at 03:00 Ivabradine (Corlanor) 5 mg BID PO Last administered on 08/04/18at 09:32; Admin Dose 5 MG; Start 08/04/18 at 09:00 Colchicine (Colchicine) 0.6 mg DAILY PO ; Start 08/05/18 at 09:00; Stop 08/07/18 at 08:59 Miscellaneous Information Patients own medicat... BID@,16 XX ; Start 08/04/18 at 10:00 Lisinopril (Zestril) 5 mg DAILY PO ; Start 08/05/18 at 09:00 Furosemide (Lasix) 20 mg DAILY PO Last administered on 08/04/18at 11:51; Admin Dose 20 MG; Start 08/04/18 at 10:00 Miscellaneous Information (*Rx Drug Level Order Reminder*) VANCO TR LEVEL PRIOR... 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/Review of Systems Vital Signs Vitals Vital Signs Date Temp Pulse Resp B/P (MAP) Pulse Ox O2 O2 Flow FiO2 Time Delivery Rate 08/04/18 97.8 77 19 130/62 94 08:12 (84) 08/04/18 Room Air 00:43 08/03/18 2.0 20:30 08/03/18 21 17:05 Intake and Output 08/03/18 08/03/18 08/04/18 1515:00 23:00 07:00 IntakeIntake Total 50 ml BalanceBalance 50 ml Exam Constitutional: alert, oriented, well developed (No apparent distress) Head: normocephalic Respiratory: clear to auscultation, normal air movement Cardiovascular: regular rate and rhythm (S1-S2 heard) Gastrointestinal: soft, non-tender, bowel sounds Musculoskeletal: other (Swelling and discomfort right ankle) Labs Result Diagram: 08/04/18 0502 08/04/18 0502 Results 24hrs Laboratory Tests Test 08/03/18 15:45 08/03/18 16:00 08/03/18 17:46 08/03/18 23:30 POC Venous 1.5 0.8 Lactate White Blood Count 10.4 Red Blood Count 5.26 Hemoglobin 14.7 Hematocrit 45.4 Mean Corpuscular 86.3 Volume Mean Corpuscular 27.9 L Hemoglobin Mean Corpuscular 32.4 Hemoglobin Concen t Red Cell 13.9 Distribution Width Platelet Count 177 Mean Platelet 10.8 H Volume Immature 0.700 H Granulocytes % Neutrophils % Segmented 51 Neutrophils % (Manual) Lymphocytes % Lymphocytes % 17 (Manual) Reactive 15 H Lymphocytes % (Manual) Monocytes % Monocytes % 16 H (Manual) Eosinophils % Eosinophils % 1 (Manual) Basophils % Nucleated Red 0.0 Blood Cells % Immature 0.070 H Granulocytes # Neutrophils # Lymphocytes 1.7 (Manual) Lymphocytes # Reactive 1.5 H Lymphocytes # Monocytes # Monocytes # 1.6 H (Manual) Eosinophils # Basophils # Nucleated Red Blood Cells # Platelet Estimate NORMAL Erythrocyte 27 H Sedimentation Rate Prothrombin Time 13.0 Prothrombin Time 1.0 Ratio INR International 0.97 Normalized Ratio Activated 34.9 Partial Thrombopl ast Time Sodium Level 134 L Potassium Level 4.9 Chloride Level 96 L Carbon Dioxide 27 Level Anion Gap 11 Blood Urea 32 H Nitrogen Creatinine 1.35 H Est Glomerular 55 L Filtrat Rate mL/min Glucose Level 93 Uric Acid 8.0 H Calcium Level 9.4 Total Bilirubin 1.2 Direct Bilirubin 0.00 Indirect 1.2 H Bilirubin Aspartate Amino 24 Transf (AST/SGOT) Alanine 17 Aminotransferase (ALT/SGPT) Alkaline 65 Phosphatase Total Protein 8.0 Albumin 4.4 Globulin 3.60 H Albumin/Globulin 1.22 Ratio Synovial Fluid RIGHT KNEE Source Synovial Fluid ORANGE Color Synovial Fluid Turbid Appearance Synovial Fluid 2.5 Volume Synovial Fluid 99474 H WBC Synovial Fluid 96.1 H Polynuclear WBCs % Synovial Fluid 3.9 Mononuclear WBCs % Synovial Fluid URIC Crystals ACID CRYSTALS H Test 08/04/18 01:50 08/04/18 05:02 08/04/18 10:16 Urine Color YELLOW Urine Clarity CLEAR Urine pH 5.0 Urine Specific 1.017 [place] Urine Ketones NEGATIVE Urine Nitrite NEGATIVE Urine Bilirubin NEGATIVE Urine NEGATIVE Urobilinogen Urine Leukocyte NEGATIVE Esterase Urine Hemoglobin NEGATIVE Urine Glucose NEGATIVE Urine Total NEGATIVE Protein White Blood Count 9.3 Red Blood Count 4.70 Hemoglobin 13.4 L Hematocrit 40.9 L Mean Corpuscular 87.0 Volume Mean Corpuscular 28.5 L Hemoglobin Mean Corpuscular 32.8 Hemoglobin Concen t Red Cell 13.7 Distribution Width Platelet Count 169 Mean Platelet 11.4 H Volume Immature 0.400 Granulocytes % Neutrophils % 84.4 H Lymphocytes % 11.7 L Monocytes % 3.4 Eosinophils % 0.0 Basophils % 0.1 Nucleated Red 0.0 Blood Cells % Immature 0.040 H Granulocytes # Neutrophils # 7.8 H Lymphocytes # 1.1 Monocytes # 0.3 Eosinophils # 0.0 Basophils # 0.0 Nucleated Red 0.0 Blood Cells # Sodium Level 138 Potassium Level 4.7 Chloride Level 101 Carbon Dioxide 28 Level Anion Gap 9 Blood Urea 35 H Nitrogen Creatinine 1.18 Est Glomerular > 60 Filtrat Rate mL/min Glucose Level 159 Hemoglobin A1c 5.5 Calcium Level 9.3 Magnesium Level 2.2 Total Bilirubin 0.4 Direct Bilirubin 0.00 Indirect 0.4 Bilirubin Aspartate Amino 20 Transf (AST/SGOT) Alanine 13 Aminotransferase (ALT/SGPT) Alkaline 52 Phosphatase Total Protein 7.2 Albumin 3.9 Globulin 3.30 H Albumin/Globulin 1.18 Ratio Thyroid 0.241 L Stimulating Hormone (TSH) Free Thyroxine 1.88 Index Thyroxine (T4) 5.1 L Triiodothyronine 36.8 (T3) Uptake Creatine Kinase 236 H Creatine Kinase 1.0 Index Creatinine Kinase 2.27 MB (Mass) Troponin I < 0.012 Imaging Imaging ECG sinus rhythm, right bundle branch block, T wave inversions Medications Medications Current Medications Ondansetron HCl (Zofran Inj) 4 mg BRIDGE ORDER PRN IV NAUSEA/VOMITING; Start 08/03/18 at 22:00; Stop 08/04/18 at 21:59 Atorvastatin Calcium (Lipitor) 10 mg QHS PO ; Start 08/04/18 at 21:00 Digoxin (Digoxin) 0.125 mg DAILY@1300 PO ; Start 08/04/18 at 13:00 Metoprolol Succinate (Toprol Xl) 25 mg QPM PO ; Start 08/04/18 at 21:00 IV Flush (NS 3 ml) 3 ml PER PROTOCOL IV ; Start 08/03/18 at 22:30 Ondansetron HCl (Zofran Inj) 4 mg Q6H PRN IV NAUSEA/VOMITING; Start 08/03/18 at 22:30 Acetaminophen (Tylenol Tab) 650 mg Q6H PRN PO .PAIN 1-3 OR TEMP; Start 08/03/18 at 22:30 Acetaminophen/ Hydrocodone Bitart ([place] (5/325)) 1 tab Q6H PRN PO .MOD PAIN 4- 6; Start 08/03/18 at 22:30 Pantoprazole (Protonix Tab) 40 mg DAILY@06 PO Last administered on 08/04/18at 05:51; Admin Dose 40 MG; Start 08/04/18 at 06:00 Sodium Chloride 1,000 ml @ 60 mls/hr [id number] IV Last administered on 08/04/18at 02:06; Admin Dose 60 MLS/HR; Start 08/04/18 at 00:30; Stop 08/04/18 at 17:09 Vancomycin HCl (Vanco Iv Per Pharmacy) VANCOMYCIN PER PHARMACY PER PROTOCOL XX ; Start 08/04/18 at 01:00 Ceftriaxone Sodium 50 ml @ 100 mls/hr Q24H IVPB Last administered on 08/04/18at 03:11; Admin Dose 100 MLS/HR; Start 08/04/18 at 01:00 Allopurinol (Zyloprim) 100 mg DAILY PO Last administered on 08/04/18at 09:33; Admin Dose 100 MG; Start 08/04/18 at 09:00 Vancomycin HCl 1.5 gm/Sodium Chloride 250 ml @ 83.333 mls/ hr Q12H IVPB Last administered on 08/04/18at 03:56; Admin Dose 83.333 MLS/HR; Start 08/04/18 at 03:00 Ivabradine (Corlanor) 5 mg BID PO Last administered on 08/04/18at 09:32; Admin Dose 5 MG; Start 08/04/18 at 09:00 Colchicine (Colchicine) 0.6 mg DAILY PO ; Start 08/05/18 at 09:00; Stop 08/07/18 at 08:59 Miscellaneous Information Patients own medicat... BID@, XX ; Start 08/04/18 at 10:00 Lisinopril (Zestril) 5 mg DAILY PO ; Start 08/05/18 at 09:00 Furosemide (Lasix) 20 mg DAILY PO Last administered on 08/04/18at 11:51; Admin Dose 20 MG; Start 08/04/18 at 10:00 Miscellaneous Information (*Rx Drug Level Order Reminder*) VANCO TR LEVEL PRIOR ... ONCE ONCE XX ; Start 08/05/18 at 14:00; Stop 08/05/18 at 14:01 Wesley Workman DO Aug 04, 2018 11:59
[2018-08-04] MEDS: DIGOXIN 0.125 MG TAB PO SCH (14:20)
[2018-08-04 14:54] VITALS: BP 129/60; PULSE 70; RESP 18
--- NOTE | 2018-08-04 16:53 | PN ---
Date/Time of Note Date/Time of Note DATE: 08/04/18 TIME: 16:48 Assessment/Plan Lines/Catheters IV C[facility]ter Type (from [facility]): Peripheral IV Assessment/Plan Chief Complaint/Hosp Course This is a 53-year-old male with history of gout and severe congestive heart failure. His synovial fluid studies are concerning for the fact that the WBC count was 80,000. However even though he did receive a dose of steroids and antibiotics in the emergency department it be unlikely he would have this quick recovery if this was a superimposed infection on gout. However out of an abundance of caution he should remain admitted for observation with continued treatment for gout while the cultures are finalized. Plan: Patient should be made n.p.o. at midnight every night until cultures are revie wed the next day. Continue gout treatment Activities as tolerated We will follow-up cultures daily. Once finalized and if negative the patient can be discharged home. Subjective 24 Hr Interval Summary Patient doing well No acute events overnight. No fever or chills. The patient states that his pain has completely resolved and he is able to walk on it without any issues. Exam/Review of Systems Vital Signs Vitals Vital Signs Date Temp Pulse Resp B/P (MAP) Pulse Ox O2 O2 Flow FiO2 Time Delivery Rate 08/04/18 97.7 70 18 129/60 92 14:54 (83) 08/04/18 Room Air 00:43 08/03/18 2.0 20:30 08/03/18 21 17:05 Intake and Output 08/03/18 08/03/18 08/04/18 1515:00 23:00 07:00 IntakeIntake Total 50 ml BalanceBalance 50 ml Exam Free Text/Dictation General: Awake, alert, in no acute distress, pleasant and cooperative Heart: regular rhythm Lungs: breathing comfortably, no tachypnea or dyspnea MUSCULOSKELETAL: Right lower extremity: There is mild to moderate swelling of the ankle more on the lateral aspect. There is no erythema. There is no warmth. There is no tenderness to palpation along the ankle joint line or anywhere around the ankle or foot. Patient has no pain with axial loading. He has near full range of motion. There is mild crepitance but no pain. Sensation intact to light touch in a sural, saphenous, deep peroneal, superficial peroneal, medial and lateral plantar nerve distribution. Motor is intact, patient able to dorsiflex and plantarflex ankle and extend and flex great toe. Dorsalis Pedis pulse +2, Brisk capillary refill. Compartments are soft. Calves non-tender to palpation bilaterally. Results Result Diagram: 08/04/18 0502 08/04/18 0502 Results Last 24 Hrs Synovial fluid right ankle: Positive for uric acid crystals 80,700 WBCs. 96% PMNs no growth to date for cultures MONCHO MENG MD Aug 04, 2018 16:53
[2018-08-04 20:00] VITALS: BP 126/60; PULSE 73; RESP 18
[2018-08-04] MEDS: ATORVASTATIN 10 MG TAB PO SCH (20:51)
[2018-08-04] MEDS: METOPROLOL (XL) 25 MG TAB PO SCH (20:51)
[2018-08-05] MEDS: CEFTRIAXONE 2 GM/50 ML (PMX) 50 ML IVPB SCH (01:34)
[2018-08-05 01:54] VITALS: BP 118/56; PULSE 68; RESP 18
[2018-08-05] MEDS: VANCOMYCIN HCL 1.5 GM in SOD CHLORIDE 0.9% 250 ML IVPB SCH (03:10)
[2018-08-05] MEDS: PANTOPRAZOLE (EC) 40 MG TAB PO SCH (06:09)
--- NOTE | 2018-08-05 08:00 | CONS ---
Assessment/Plan Assessment/Plan Hospital Course (Demo Recall) 1) gouty arthritis R ankle unlikely he has infection since his pain so quickly dissipated ankle cx remain NGTD and if they are neg tomorrow then can d/c antibiotics at that time pt has had a recent hospitalization so MRSA is possible if it is infected ok to continue vanco/ceftriaxone for one more day 2) CHF with life vest on no respiratory c/o Consultation Date/Type/Reason Admit Date/Time Date of Consultation: Aug 05, 2018 Type of Consult ID Date/Time of Note DATE: 08/05/18 TIME: 07:55 Hx of Present Illness pt had a recent gout attack to his L ankle which has resolved but 15 days later he developed swelling to R ankle The swelling started 4 days [employer] and he developed fevers 1-2 [employer] he denies SOB, cough, N, V, D he was recently at [facility] hospital due to his CHF he has no prior hx of MRSA that he recalls He has his foot aspirated and he received a dose of solumedrol he now denies pain to his R ankle Past Medical History CHF, gout, hyperlipidemia Home Meds Reported Medications Metoprolol Succinate* (Toprol XL*) 25 Mg Tab.sr.24h, 25 MG PO QPM, #30 TAB 08/03/18 Atorvastatin Calcium (Atorvastatin Calcium) 10 Mg Tablet, 10 MG PO QHS, #30 TAB 08/03/18 Lisinopril* (Lisinopril*) 10 Mg Tablet, 10 MG PO DAILY, #30 TAB 08/03/18 Digoxin* (Digitek*) 125 Mcg Tablet, 0.125 MG PO DAILY, TAB 08/03/18 Ergocalciferol (Vitamin D2) (VITAMIN D2) 2,000 Unit Tablet, 2000 UNIT PO DAILY, TAB 08/03/18 Ivabradine HCl (Corlanor) 5 Mg Tablet, 5 MG PO BID, #60 TAB 08/03/18 Furosemide* (Furosemide*) 20 Mg Tablet, 20 MG PO DAILY, #60 TAB 08/03/18 Allopurinol* (Allopurinol*) 100 Mg Tablet, 100 MG PO DAILY, TAB 08/03/18 Aspirin (Low Dose Aspirin) 81 Mg Tablet., 81 MG PO DAILY, #30 TAB 08/03/18 Discontinued Scripts Aspirin* (Aspirin* EC) 81 Mg Tablet., 81 MG PO DAILY for 90 Days, #90 TAB 5 Refills Prov:AHMET SOLIS MD 06/22/18 Furosemide* (Lasix*) 20 Mg Tablet, 20 MG PO DAILY for 30 Days, #30 TAB 2 Refills Prov:AHMET SOLIS MD 06/22/18 Metoprolol Succinate* (Toprol XL*) 50 Mg Tab.er.24h, 50 MG PO DAILY for 90 Days, #90 TAB 5 Refills Prov:AHMET SOLIS MD 06/22/18 Lisinopril* (Lisinopril*) 10 Mg Tablet, 10 MG PO DAILY for 90 Days, #90 TAB 5 Refills Prov:AHMET SOLIS MD 06/22/18 Atorvastatin (Atorvastatin) 10 Mg Tablet, 10 MG PO HS for 60 Days, #60 TAB 5 Refills Prov:AHMET SOLIS MD 06/22/18 Medications Current Medications Atorvastatin Calcium (Lipitor) 10 mg QHS PO Last administered on 08/04/18at 20:51; Admin Dose 10 MG; Start 08/04/18 at 21:00 Digoxin (Digoxin) 0.125 mg DAILY@1300 PO Last administered on 08/04/18at 14:20; Admin Dose 0.125 MG; Start 08/04/18 at 13:00 Metoprolol Succinate (Toprol Xl) 25 mg QPM PO Last administered on 08/04/18at 20:51; Admin Dose 25 MG; Start 08/04/18 at 21:00 IV Flush (NS 3 ml) 3 ml PER PROTOCOL IV ; Start 08/03/18 at 22:30 Ondansetron HCl (Zofran Inj) 4 mg Q6H PRN IV NAUSEA/VOMITING; Start 08/03/18 at 22:30 Acetaminophen (Tylenol Tab) 650 mg Q6H PRN PO .PAIN 1-3 OR TEMP; Start 08/03/18 at 22:30 Acetaminophen/ Hydrocodone Bitart ([place] (5/325)) 1 tab Q6H PRN PO .MOD PAIN 4- 6; Start 08/03/18 at 22:30 Pantoprazole (Protonix Tab) 40 mg DAILY@06 PO Last administered on 08/05/18at 06:09; Admin Dose 40 MG; Start 08/04/18 at 06:00 Vancomycin HCl (Vanco Iv Per Pharmacy) VANCOMYCIN PER PHARMACY PER PROTOCOL XX ; Start 08/04/18 at 01:00 Ceftriaxone Sodium 50 ml @ 100 mls/hr Q24H IVPB Last administered on 08/05/18at 01:34; Admin Dose 100 MLS/HR; Start 08/04/18 at 01:00 Allopurinol (Zyloprim) 100 mg DAILY PO Last administered on 08/04/18at 09:33; Admin Dose 100 MG; Start 08/04/18 at 09:00 Vancomycin HCl 1.5 gm/Sodium Chloride 250 ml @ 83.333 mls/ hr Q12H IVPB Last administered on 08/05/18at 03:10; Admin Dose 83.333 MLS/HR; Start 08/04/18 at 03:00 Ivabradine (Corlanor) 5 mg BID PO Last administered on 08/04/18at 20:51; Admin Dose 5 MG; Start 08/04/18 at 09:00 Colchicine (Colchicine) 0.6 mg DAILY PO ; Start 08/05/18 at 09:00; Stop 08/07/18 at 08:59 Miscellaneous Information Patients own medicat... BID@10,16 XX ; Start 08/04/18 at 10:00 Lisinopril (Zestril) 5 mg DAILY PO ; Start 08/05/18 at 09:00 Furosemide (Lasix) 20 mg DAILY PO Last administered on 08/04/18at 11:51; Admin Dose 20 MG; Start 08/04/18 at 10:00 Miscellaneous Information (*Rx Drug Level Order Reminder*) VANCO TR LEVEL PRIOR... ONCE ONCE XX ; Start 08/05/18 at 14:00; Stop 08/05/18 at 14:01 Allergies: Coded Allergies: No Known Allergy (Unverified , 08/03/18) Past Surgical History Past Surgical Hx: no surgical history Social History Alcohol Use: none Smoking Status: Never smoker Drug Use: none Exam/Review of Systems Exam Vitals Vital Signs Date Temp Pulse Resp B/P (MAP) Pulse Ox O2 O2 Flow FiO2 Time Delivery Rate 08/05/18 97.7 68 18 118/56 94 01:54 (76) 08/04/18 Room Air 00:43 08/03/18 2.0 20:30 08/03/18 21 17:05 Intake and Output 08/04/18 08/04/1819 1414:59 22:59 06:59 IntakeIntake Total 550 ml 1170 ml 780 ml OutputOutput Total 650 ml BalanceBalance 550 ml 1170 ml 130 ml Constitutional: alert, oriented Eyes: nl sclera ENMT: mucosa pink and moist Respiratory: clear to auscultation Cardiovascular: regular rate and rhythm Gastrointestinal: soft, non-tender Extremities: other (R ankle has minimal pale redness, slight increase in heat and swelling) Results Result Diagram: 08/05/18 0516 08/05/18 0516 Results 24hrs Laboratory Tests Test 08/04/18 10:16 08/04/18 14:23 08/04/18 16:06 08/04/18 21:59 Creatine Kinase 236 H 224 H 200 Creatine Kinase 1.0 1.3 1.3 Index Creatinine Kinase MB 2.27 2.94 H 2.58 H (Mass) Troponin I < 0.012 < 0.012 0.023 Lab Scanned Report LAB Test 08/05/18 05:16 White Blood Count 10.8 Red Blood Count 4.81 Hemoglobin 13.4 L Hematocrit 43.0 Mean Corpuscular 89.4 Volume Mean Corpuscular 27.9 L Hemoglobin Mean Corpuscular 31.2 L Hemoglobin Concent Red Cell 13.8 Distribution Width Platelet Count 175 Mean Platelet Volume 11.3 H Immature 0.600 H Granulocytes % Neutrophils % 69.3 Lymphocytes % 19.2 Monocytes % 10.0 Eosinophils % 0.6 Basophils % 0.3 Nucleated Red Blood 0.0 Cells % Immature 0.070 H Granulocytes # Neutrophils # 7.5 Lymphocytes # 2.1 Monocytes # 1.1 H Eosinophils # 0.1 Basophils # 0.0 Nucleated Red Blood 0.0 Cells # Sodium Level 143 Potassium Level 4.7 Chloride Level 104 Carbon Dioxide Level 30 Anion Gap 9 Blood Urea Nitrogen 32 H Creatinine 1.10 Est Glomerular > 60 Filtrat Rate mL/min Glucose Level 113 # Calcium Level 9.0 Magnesium Level 2.5 C-Reactive Protein 5.7 H Digoxin Level < 0.4 L Medications Medication Current Medications Atorvastatin Calcium (Lipitor) 10 mg QHS PO Last administered on 08/04/18at 20:51; Admin Dose 10 MG; Start 08/04/18 at 21:00 Digoxin (Digoxin) 0.125 mg DAILY@1300 PO Last administered on 08/04/18at 14:20; Admin Dose 0.125 MG; Start 08/04/18 at 13:00 Metoprolol Succinate (Toprol Xl) 25 mg QPM PO Last administered on 08/04/18 20:51; Admin Dose 25 MG; Start 08/04/18 at 21:00 IV Flush (NS 3 ml) 3 ml PER PROTOCOL IV ; Start 08/03/18 at 22:30 Ondansetron HCl (Zofran Inj) 4 mg Q6H PRN IV NAUSEA/VOMITING; Start 08/03/18 at 22:30 Acetaminophen (Tylenol Tab) 650 mg Q6H PRN PO .PAIN 1-3 OR TEMP; Start 08/03/18 at 22:30 Acetaminophen/ Hydrocodone Bitart ([place] (5/325)) 1 tab Q6H PRN PO .MOD PAIN 4- 6; Start 08/03/18 at 22:30 Pantoprazole (Protonix Tab) 40 mg DAILY@06 PO Last administered on 08/05/18 06:09; Admin Dose 40 MG; Start 08/04/18 at 06:00 Vancomycin HCl (Vanco Iv Per Pharmacy) VANCOMYCIN PER PHARMACY PER PROTOCOL XX ; Start 08/04/18 at 01:00 Ceftriaxone Sodium 50 ml @ 100 mls/hr Q24H IVPB Last administered on 08/05/18 01:34; Admin Dose 100 MLS/HR; Start 08/04/18 at 01:00 Allopurinol (Zyloprim) 100 mg DAILY PO Last administered on 08/04/18 09:33; Admin Dose 100 MG; Start 08/04/18 at 09:00 Vancomycin HCl 1.5 gm/Sodium Chloride 250 ml @ 83.333 mls/ hr Q12H IVPB Last administered on 08/05/18 03:10; Admin Dose 83.333 MLS/HR; Start 08/04/18 at 03:00 Ivabradine (Corlanor) 5 mg BID PO Last administered on 08/04/18 20:51; Admin Dose 5 MG; Start 08/04/18 at 09:00 Colchicine (Colchicine) 0.6 mg DAILY PO ; Start 08/05/18 at 09:00; Stop 08/07/18 at 08:59 Miscellaneous Information Patients own medicat... BID@ XX ; Start 08/04/18 at 10:00 Lisinopril (Zestril) 5 mg DAILY PO ; Start 08/05/18 at 09:00 Furosemide (Lasix) 20 mg DAILY PO Last administered on 08/04/18at 11:51; Admin D ose 20 MG; Start 08/04/18 at 10:00 Miscellaneous Information (*Rx Drug Level Order Reminder*) VANCO TR LEVEL PRIOR... ONCE ONCE XX ; Start 08/05/18 at 14:00; Stop 08/05/18 at 14:01 MERCEDES MERCADO MD Aug 05, 2018 08:00
[2018-08-05 08:36] VITALS: BP 137/74; PULSE 52; RESP 18
[2018-08-05] MEDS: COLCHICINE 0.6 MG TAB PO SCH (08:43)
[2018-08-05] MEDS: LISINOPRIL 5 MG TAB PO SCH (08:44)
[2018-08-05] MEDS: ALLOPURINOL 100 MG TAB PO SCH (08:44)
[2018-08-05] MEDS: FUROSEMIDE 20 MG TAB PO SCH (08:44)
[2018-08-05] MEDS: IVABRADINE HCL 5 MG TABLET PO SCH ×2 (08:44→20:37)
--- NOTE | 2018-08-05 10:50 | PN ---
Date/Time of Note Date/Time of Note DATE: 08/05/18 TIME: 10:43 Assessment/Plan VTE Prophylaxis Risk score (from Ns)>0 risk: 3 SCD applied (from [facility] [place] Yes SCD contraindicated: other (scdS LLE) Pharmacological prophylaxis: NA/contraindicated Pharm contraindication: low risk/ambulating Lines/Catheters IV [facility] (from [facility]): Peripheral IV Assessment/Plan Hospital Course SUBJECTIVE: No acute overnight episodes. Patient with no fevers. With minimal pain on right foot. OBJECTIVE: Vital signs-see below PHYSICAL EXAM: Constitutional: Obese male, lying in bed comfortably. Psych: nl mood/affect, no complaints Head: atraumatic, normocephalic Eyes: nl conjunctiva, nl sclera ENMT: mucosa pink and moist, nl external ears & nose Neck: non-tender, supple Respiratory: Diminished bibasilar, normal air movement Cardiovascular: with Lifevest. nl pulses, regular rate and rhythm Gastrointestinal: non-tender, soft, bowel sounds active in all 4 quadrants. Musculoskeletal/extremities: Rt foot/ankle edematous/red//tender. motor strength equal bilaterally, no focal deficit. Normal pulses,no cyanosis, no edema. Neurological: Alert oriented 3,nl speech, nl strength Skin: nl turgor ASSESSMENT/PLAN: 53-year-old male with a history of dyslipidemia, CHF, hypertension, gout, admitted with worsening right ankle pain/swelling/tenderness times 4-day duration, found to have sepsis. 1. Sepsis, likely culprit: Right ankle cellulitis/gouty arthritis -Continue current antibiotics=>ID to manage -Follow-up final cultures 2. Right ankle cellulitis w/ gouty arthritis: - Initial flow study with a significant white count=>As per ID, unlikely septic arthritis since patient symptoms a improving rapidly. Await for cultures. Plan is to continue antibiotic and if cultures are negative by tomorrow, is to discontinue antibiotics. -Orthopedics notes reviewed, patient with rapid clinical improvement with medical management however, he may require surgical intervention depending culture results.. -Continue broad-spectrum antibiotics and f/u final CS 3. Chronic systolic congestive heart failure, last known EF 30% -Currently appears euvolemic. Patient has a LifeVest. -Continue digoxin, beta-blockers,ACEi. -Cardiology consult 4. Gout flares -Pain is well controlled now -Patient received steroids in ED. Orthopedic surgery would like to hold off steroids at current time. -Continue colchicine times 3-day. 5. Acute kidney injury, likely hemodynamic -Resolved. - will monitor renal function. 6. Hypertension -Stable -Continue home medications 7. Dyslipidemia -On statin 8. Obesity with BMI 36.8 -Weight reduction advised. DVT prophylaxis: SCDs LLE PUD prophylaxis: Protonix CODE STATUS: Full code Diet: N.p.o. for possible surgical intervention. Disposition: Continue current management. Improving on medical management. Follow-up orthopedic recommendations. Patient was seen in collaboration with Dr. Heard Result Diagram: 08/05/18 0516 08/05/18 0516 Results 24hrs Laboratory Tests Test 08/04/18 14:23 08/04/18 16:06 08/04/18 21:59 08/05/18 05:16 Lab Scanned Report LAB Creatine Kinase 224 H 200 Creatine Kinase 1.3 1.3 Index Creatinine Kinase MB 2.94 H 2.58 H (Mass) Troponin I < 0.012 0.023 White Blood Count 10.8 Red Blood Count 4.81 Hemoglobin 13.4 L Hematocrit 43.0 Mean Corpuscular 89.4 Volume Mean Corpuscular 27.9 L Hemoglobin Mean Corpuscular 31.2 L Hemoglobin Concent Red Cell 13.8 Distribution Width Platelet Count 175 Mean Platelet Volume 11.3 H Immature 0.600 H Granulocytes % Neutrophils % 69.3 Lymphocytes % 19.2 Monocytes % 10.0 Eosinophils % 0.6 Basophils % 0.3 Nucleated Red Blood 0.0 Cells % Immature 0.070 H Granulocytes # Neutrophils # 7.5 Lymphocytes # 2.1 Monocytes # 1.1 H Eosinophils # 0.1 Basophils # 0.0 Nucleated Red Blood 0.0 Cells # Sodium Level 143 Potassium Level 4.7 Chloride Level 104 Carbon Dioxide Level 30 Anion Gap 9 Blood Urea Nitrogen 32 H Creatinine 1.10 Est Glomerular > 60 Filtrat Rate mL/min Glucose Level 113 # Calcium Level 9.0 Magnesium Level 2.5 C-Reactive Protein 5.7 H Digoxin Level < 0.4 L Exam/Review of Systems Exam Vitals Vital Signs Date Temp Pulse Resp B/P (MAP) Pulse Ox O2 O2 Flow FiO2 Time Delivery Rate 08/05/18 97.8 52 18 137/74 97 08:36 (95) 08/04/18 Room Air 00:43 08/03/18 2.0 20:30 08/03/18 21 17:05 Intake and Output 08/04/18 08/04/18 08/05/18 1515:00 23:00 07:00 IntakeIntake Total 550 ml 1170 ml 780 ml OutputOutput Total 650 ml BalanceBalance 550 ml 1170 ml 130 ml Results Results 24hrs Laboratory Tests Test 08/04/18 14:23 08/04/18 16:06 08/04/18 21:59 08/05/18 05:16 Lab Scanned Report LAB Creatine Kinase 224 H 200 Creatine Kinase 1.3 1.3 Index Creatinine Kinase MB 2.94 H 2.58 H (Mass) Troponin I < 0.012 0.023 White Blood Count 10.8 Red Blood Count 4.81 Hemoglobin 13.4 L Hematocrit 43.0 Mean Corpuscular 89.4 Volume Mean Corpuscular 27.9 L Hemoglobin Mean Corpuscular 31.2 L Hemoglobin Concent Red Cell 13.8 Distribution Width Platelet Count 175 Mean Platelet Volume 11.3 H Immature 0.600 H Granulocytes % Neutrophils % 69.3 Lymphocytes % 19.2 Monocytes % 10.0 Eosinophils % 0.6 Basophils % 0.3 Nucleated Red Blood 0.0 Cells % Immature 0.070 H Granulocytes # Neutrophils # 7.5 Lymphocytes # 2.1 Monocytes # 1.1 H Eosinophils # 0.1 Basophils # 0.0 Nucleated Red Blood 0.0 Cells # Sodium Level 143 Potassium Level 4.7 Chloride Level 104 Carbon Dioxide Level 30 Anion Gap 9 Blood Urea Nitrogen 32 H Creatinine 1.10 Est Glomerular > 60 Filtrat Rate mL/min Glucose Level 113 # Calcium Level 9.0 Magnesium Level 2.5 C-Reactive Protein 5.7 H Digoxin Level < 0.4 L Medications Medication Current Medications Atorvastatin Calcium (Lipitor) 10 mg QHS PO Last administered on 08/04/18at 20:51; Admin Dose 10 MG; Start 08/04/18 at 21:00 Digoxin (Digoxin) 0.125 mg DAILY@1300 PO Last administered on 08/04/18 14:20; Admin Dose 0.125 MG; Start 08/04/18 at 13:00 Metoprolol Succinate (Toprol Xl) 25 mg QPM PO Last administered on 08/04/18 20:51; Admin Dose 25 MG; Start 08/04/18 at 21:00 IV Flush (NS 3 ml) 3 ml PER PROTOCOL IV ; Start 08/03/18 at 22:30 Ondansetron HCl (Zofran Inj) 4 mg Q6H PRN IV NAUSEA/VOMITING; Start 08/03/18 at 22:30 Acetaminophen (Tylenol Tab) 650 mg Q6H PRN PO .PAIN 1-3 OR TEMP; Start 08/03/18 at 22:30 Acetaminophen/ Hydrocodone Bitart ([place] (5/325)) 1 tab Q6H PRN PO .MOD PAIN 4- 6; Start 08/03/18 at 22:30 Pantoprazole (Protonix Tab) 40 mg DAILY@06 PO Last administered on 08/05/18at 06:09; Admin Dose 40 MG; Start 08/04/18 at 06:00 Vancomycin HCl (Vanco Iv Per Pharmacy) VANCOMYCIN PER PHARMACY PER PROTOCOL XX ; Start 08/04/18 at 01:00 Ceftriaxone Sodium 50 ml @ 100 mls/hr Q24H IVPB Last administered on 08/05/18at 01:34; Admin Dose 100 MLS/HR; Start 08/04/18 at 01:00 Allopurinol (Zyloprim) 100 mg DAILY PO Last administered on 08/05/18 08:44; Admin Dose 100 MG; Start 08/04/18 at 09:00 Vancomycin HCl 1.5 gm/Sodium Chloride 250 ml @ 83.333 mls/ hr Q12H IVPB Last administered on 08/05/18 03:10; Admin Dose 83.333 MLS/HR; Start 08/04/18 at 03:00 Ivabradine (Corlanor) 5 mg BID PO Last administered on 08/05/18at 08:44; Admin Dose 5 MG; Start 08/04/18 at 09:00 Colchicine (Colchicine) 0.6 mg DAILY PO Last administered on 08/05/18 08:43; Admin Dose 0.6 MG; Start 08/05/18 at 09:00; Stop 08/07/18 at 08:59 Miscellaneous Information Patients own medicat... BID@16 XX ; Start 08/04/18 at 10:00 Lisinopril (Zestril) 5 mg DAILY PO Last administered on 08/05/18at 08:44; Admin Dose 5 MG; Start 08/05/18 at 09:00 Furosemide (Lasix) 20 mg DAILY PO Last administered on 08/05/18at 08:44; Admin Dose 20 MG; Start 08/04/18 at 10:00 Miscellaneous Information (*Rx Drug Level Order Reminder*) VANCO TR LEVEL PRIOR... ONCE ONCE XX ; Start 08/05/18 at 14:00; Stop 08/05/18 at 14:01 JAVIER LAM NP Aug 05, 2018 10:49
--- NOTE | 2018-08-05 13:18 | PN ---
Date/Time of Note Date/Time of Note DATE: 08/05/18 TIME: 13:16 Assessment/Plan Lines/Catheters IV [facility] Type (from [facility]): Peripheral IV Assessment/Plan Chief Complaint/Hosp Course This is a 53-year-old male with history of gout and severe congestive heart failure. His clinical picture continues to improve. He is completely asymptomatic in the ankle. Cultures to date are no growth. At this time it is unlikely that the patient had a septic ankle joint and this was due to gout. Plan: Patient can have his regular diet per medicine team Continue gout treatment Activities as tolerated We will follow-up cultures daily. Once finalized and if negative the patient can be discharged home. Subjective 24 Hr Interval Summary Patient doing well No acute events overnight Pain is well controlled Exam/Review of Systems Vital Signs Vitals Vital Signs Date Temp Pulse Resp B/P (MAP) Pulse Ox O2 O2 Flow FiO2 Time Delivery Rate 08/05/18 97.8 52 18 137/74 97 08:36 (95) 08/04/18 Room Air 00:43 08/03/18 2.0 20:30 08/03/18 21 17:05 Intake and Output 08/04/18 08/04/18 08/05/18 1515:00 23:00 07:00 IntakeIntake Total 550 ml 1170 ml 780 ml OutputOutput Total 650 ml BalanceBalance 550 ml 1170 ml 130 ml Exam Free Text/Dictation General: Awake, alert, in no acute distress, pleasant and cooperative Heart: regular rhythm Lungs: breathing comfortably, no tachypnea or dyspnea MUSCULOSKELETAL: Right lower extremity: There is mild swelling of the ankle more on the lateral aspect. There is no erythema. There is no warmth. There is no tenderness to palpation along the ankle joint line or anywhere around the ankle or foot. Patient has no pain with axial loading. He has near full range of motion. There is mild crepitance but no pain. Sensation intact to light touch in a sural, saphenous, deep peroneal, superficial peroneal, medial and lateral plantar nerve distribution. Motor is intact, patient able to dorsiflex and plantarflex ankle and extend and flex great toe. Dorsalis Pedis pulse +2, Brisk capillary refill. Compartments are soft. Calves non-tender to palpation bilaterally. Results Free Text/Dictation Right ankle synovial fluid cultures: No growth to date Result Diagram: 08/05/18 0516 08/05/18 0516 MONCHO MENG MD Aug 05, 2018 13:18
[2018-08-05] MEDS: DIGOXIN 0.125 MG TAB PO SCH (13:24)
[2018-08-05 14:55] VITALS: BP 119/79; PULSE 53; RESP 18
[2018-08-05] MEDS: VANCOMYCIN HCL 1.25 GM in SOD CHLORIDE 0.9% 250 ML IVPB SCH (17:22)
--- NOTE | 2018-08-05 19:38 | CONS ---
Consult Date/Type/Reason Admit Date/Time Aug 03, 2018 at 21:43 Initial Consult Date 08/05/18 Type of Consultation: cv Date/Time of Note DATE: 08/05/18 TIME: 19:34 Subjective cardiology follow up note S D/w STAFF and brother pt still c/o R foot pain and edema no cp no PND orthopnea o: Gen no acute distress HEENT NC AT, PER CV RRR. systolic murmur pulm: CTA b/l . no wheezing GI Obese soft ND EXT RLE foot edema. warm neuro [id number] pysch calm and pleasant Objective Vitals Vital Signs Date Temp Pulse Resp B/P (MAP) Pulse Ox O2 O2 Flow FiO2 Time Delivery Rate 08/05/18 98.4 53 18 119/79 99 14:55 (92) 08/04/18 Room Air 00:43 08/03/18 2.0 20:30 08/03/18 21 17:05 Intake and Output 08/04/18 08/04/18 08/05/18 1515:00 23:00 07:00 IntakeIntake Total 550 ml 1170 ml 780 ml OutputOutput Total 650 ml BalanceBalance 550 ml 1170 ml 130 ml Results/Medications Result Diagram: 08/05/18 0516 08/05/18 0516 Results 24 hrs Laboratory Tests Test 08/04/18 21:59 08/05/18 05:16 08/05/18 13:48 Creatine Kinase 200 Creatine Kinase Index 1.3 Creatinine Kinase MB (Mass) 2.58 H Troponin I 0.023 White Blood Count 10.8 Red Blood Count 4.81 Hemoglobin 13.4 L Hematocrit 43.0 Mean Corpuscular Volume 89.4 Mean Corpuscular Hemoglobin 27.9 L Mean Corpuscular Hemoglobin Concent 31.2 L Red Cell Distribution Width 13.8 Platelet Count 175 Mean Platelet Volume 11.3 H Immature Granulocytes % 0.600 H Neutrophils % 69.3 Lymphocytes % 19.2 Monocytes % 10.0 Eosinophils % 0.6 Basophils % 0.3 Nucleated Red Blood Cells % 0.0 Immature Granulocytes # 0.070 H Neutrophils # 7.5 Lymphocytes # 2.1 Monocytes # 1.1 H Eosinophils # 0.1 Basophils # 0.0 Nucleated Red Blood Cells # 0.0 Sodium Level 143 Potassium Level 4.7 Chloride Level 104 Carbon Dioxide Level 30 Anion Gap 9 Blood Urea Nitrogen 32 H Creatinine 1.10 Est Glomerular Filtrat Rate mL/min > 60 Glucose Level 113 # Calcium Level 9.0 Magnesium Level 2.5 C-Reactive Protein 5.7 H Digoxin Level < 0.4 L Vancomycin Level Trough 17.5 Home Meds Reported Medications Metoprolol Succinate* (Toprol XL*) 25 Mg Tab.sr.24h, 25 MG PO QPM, #30 TAB 08/03/18 Atorvastatin Calcium (Atorvastatin Calcium) 10 Mg Tablet, 10 MG PO QHS, #30 TAB 08/03/18 Lisinopril* (Lisinopril*) 10 Mg Tablet, 10 MG PO DAILY, #30 TAB 08/03/18 Digoxin* (Digitek*) 125 Mcg Tablet, 0.125 MG PO DAILY, TAB 08/03/18 Ergocalciferol (Vitamin D2) (VITAMIN D2) 2,000 Unit Tablet, 2000 UNIT PO DAILY, TAB 08/03/18 Ivabradine HCl (Corlanor) 5 Mg Tablet, 5 MG PO BID, #60 TAB 08/03/18 Furosemide* (Furosemide*) 20 Mg Tablet, 20 MG PO DAILY, #60 TAB 08/03/18 Allopurinol* (Allopurinol*) 100 Mg Tablet, 100 MG PO DAILY, TAB 08/03/18 Aspirin (Low Dose Aspirin) 81 Mg Tablet.dr, 81 MG PO DAILY, #30 TAB 08/03/18 Discontinued Scripts Aspirin* (Aspirin* EC) 81 Mg Tablet.dr, 81 MG PO DAILY for 90 Days, #90 TAB 5 Refills Prov:AHMET SOLIS MD 06/22/18 Furosemide* (Lasix*) 20 Mg Tablet, 20 MG PO DAILY for 30 Days, #30 TAB 2 Refills Prov:AHMET SOLIS MD 06/22/18 Metoprolol Succinate* (Toprol XL*) 50 Mg Tab.er.24h, 50 MG PO DAILY for 90 Days, #90 TAB 5 Refills Prov:AHMET SOLIS MD 06/22/18 Lisinopril* (Lisinopril*) 10 Mg Tablet, 10 MG PO DAILY for 90 Days, #90 TAB 5 Refills Prov:AHMET SOLIS MD 06/22/18 Atorvastatin (Atorvastatin) 10 Mg Tablet, 10 MG PO HS for 60 Days, #60 TAB 5 Refills Prov:AHMET SOLIS MD 06/22/18 Medications Current Medications Atorvastatin Calcium (Lipitor) 10 mg QHS PO Last administered on 08/04/18 20:51; Admin Dose 10 MG; Start 08/04/18 at 21:00 Digoxin (Digoxin) 0.125 mg DAILY@1300 PO Last administered on 08/05/18 13:24; Admin Dose 0.125 MG; Start 08/04/18 at 13:00 Metoprolol Succinate (Toprol Xl) 25 mg QPM PO Last administered on 08/04/18 20:51; Admin Dose 25 MG; Start 08/04/18 at 21:00 IV Flush (NS 3 ml) 3 ml PER PROTOCOL IV ; Start 08/03/18 at 22:30 Ondansetron HCl (Zofran Inj) 4 mg Q6H PRN IV NAUSEA/VOMITING; Start 08/03/18 at 22:30 Acetaminophen (Tylenol Tab) 650 mg Q6H PRN PO .PAIN 1-3 OR TEMP; Start 08/03/18 at 22:30 Acetaminophen/ Hydrocodone Bitart ([place] (5/325)) 1 tab Q6H PRN PO .MOD PAIN 4- 6; Start 08/03/18 at 22:30 Pantoprazole (Protonix Tab) 40 mg DAILY@06 PO Last administered on 08/05/18 06:09; Admin Dose 40 MG; Start 08/04/18 at 06:00 Vancomycin HCl (Vanco Iv Per Pharmacy) VANCOMYCIN PER PHARMACY PER PROTOCOL XX ; Start 08/04/18 at 01:00 Ceftriaxone Sodium 50 ml @ 100 mls/hr Q24H IVPB Last administered on 08/05/18 01:34; Admin Dose 100 MLS/HR; Start 08/04/18 at 01:00 Allopurinol (Zyloprim) 100 mg DAILY PO Last administered on 08/05/18 08:44; Admin Dose 100 MG; Start 08/04/18 at 09:00 Ivabradine (Corlanor) 5 mg BID PO Last administered on 08/05/18 08:44; Admin Dose 5 MG; Start 08/04/18 at 09:00 Colchicine (Colchicine) 0.6 mg DAILY PO Last administered on 08/05/18 08:43; Admin Dose 0.6 MG; Start 08/05/18 at 09:00; Stop 08/07/18 at 08:59 Miscellaneous Information Patients own medicat... BID@10,16 XX ; Start 08/04/18 at 10:00 Lisinopril (Zestril) 5 mg DAILY PO Last administered on 08/05/18at 08:44; Admin Dose 5 MG; Start 08/05/18 at 09:00 Furosemide (Lasix) 20 mg DAILY PO Last administered on 08/05/18at 08:44; Admin Dose 20 MG; Start 08/04/18 at 10:00 Vancomycin HCl 1.25 gm/Sodium Chloride 250 ml @ 83.333 mls/ hr Q12H IVPB Last administered on 08/05/18at 17:22; Admin Dose 83.333 MLS/HR; Start 08/05/18 at 17:00 Assessment/Plan Hospital Course (Demo Recall) 1. cv preop 2 nonischemic cardiomyopathy 3. CHF: well compensated chronic due to systolic heart failure 4. HTN 5. gouty arthritis R ankle, / INFECTION cont current cardiac care f/u with ID and ortho rec. thank you EUSEBIA LAWS MD Aug 05, 2018 19:38
[2018-08-05 20:00] VITALS: BP 154/72; PULSE 68; RESP 18
[2018-08-05] MEDS: METOPROLOL (XL) 25 MG TAB PO SCH (20:37)
[2018-08-05] MEDS: ATORVASTATIN 10 MG TAB PO SCH (20:37)
[2018-08-06] MEDS: CEFTRIAXONE 2 GM/50 ML (PMX) 50 ML IVPB SCH (01:11)
[2018-08-06 02:00] VITALS: BP 117/57; PULSE 60; RESP 20
[2018-08-06] MEDS: PANTOPRAZOLE (EC) 40 MG TAB PO SCH (05:23)
[2018-08-06] MEDS: VANCOMYCIN HCL 1.25 GM in SOD CHLORIDE 0.9% 250 ML IVPB SCH (05:23)
[2018-08-06 07:00] VITALS: BP 147/77; PULSE 57; RESP 18
--- NOTE | 2018-08-06 07:58 | CONS ---
Assessment/Plan Assessment/Plan Hospital Course (Demo Recall) 1) gouty arthritis R ankle unlikely he has infection since his pain so quickly dissipated ankle cx remain NGTD and if they are neg tomorrow then can d/c antibiotics at that time pt has had a recent hospitalization so MRSA is possible if it is infected ok to continue vanco/ceftriaxone for one more day 08/06 - d/c antibiotics no septic arthritis, just gout which is improved 2) CHF with life vest on no respiratory c/o Consultation Date/Type/Reason Admit Date/Time Aug 03, 2018 at 21:43 Initial Consult Date 08/05/18 Type of Consult ID Date/Time of Note DATE: 08/06/18 TIME: 07:57 24 HR Interval Summary Free Text/Dictation no pain to R ankle but it is still swollen no N, V, dysphagia Exam/Review of Systems Exam Vitals Vital Signs Date Temp Pulse Resp B/P (MAP) Pulse Ox O2 O2 Flow FiO2 Time Delivery Rate 08/06/18 98.3 60 20 117/57 93 02:00 (77) 08/04/18 Room Air 00:43 08/03/18 2.0 20:30 08/03/18 21 17:05 Intake and Output 08/05/18 08/05/18 08/06/18 1515:00 23:00 07:00 IntakeIntake Total 480 ml 490 ml 50 ml OutputOutput Total 300 ml BalanceBalance 180 ml 490 ml 50 ml Constitutional: alert, oriented ENMT: mucosa pink and moist Extremities: other (R ankle no redness but he has swelling but no pain) Results Result Diagram: 08/06/18 0535 08/06/18 0535 Results 24hrs Laboratory Tests Test 08/05/18 13:48 08/06/18 05:35 Vancomycin Level Trough 17.5 White Blood Count 7.0 # Red Blood Count 4.97 Hemoglobin 14.0 Hematocrit 43.3 Mean Corpuscular Volume 87.1 Mean Corpuscular Hemoglobin 28.2 L Mean Corpuscular Hemoglobin Concent 32.3 Red Cell Distribution Width 13.9 Platelet Count 192 Mean Platelet Volume 10.8 H Immature Granulocytes % 0.400 Neutrophils % 44.4 Lymphocytes % 37.8 Monocytes % 11.1 H Eosinophils % 5.7 Basophils % 0.6 Nucleated Red Blood Cells % 0.0 Immature Granulocytes # 0.030 Neutrophils # 3.1 Lymphocytes # 2.7 Monocytes # 0.8 Eosinophils # 0.4 Basophils # 0.0 Nucleated Red Blood Cells # 0.0 Sodium Level 143 Potassium Level 4.9 Chloride Level 104 Carbon Dioxide Level 29 Anion Gap 10 Blood Urea Nitrogen 30 H Creatinine 1.12 Est Glomerular Filtrat Rate mL/min > 60 Glucose Level 105 Calcium Level 9.3 Medications Medication Current Medications Atorvastatin Calcium (Lipitor) 10 mg QHS PO Last administered on 08/05/18 20:37; Admin Dose 10 MG; Start 08/04/18 at 21:00 Digoxin (Digoxin) 0.125 mg DAILY@1300 PO Last administered on 08/05/18 13:24; Admin Dose 0.125 MG; Start 08/04/18 at 13:00 Metoprolol Succinate (Toprol Xl) 25 mg QPM PO Last administered on 08/05/18 20:37; Admin Dose 25 MG; Start 08/04/18 at 21:00 IV Flush (NS 3 ml) 3 ml PER PROTOCOL IV ; Start 08/03/18 at 22:30 Ondansetron HCl (Zofran Inj) 4 mg Q6H PRN IV NAUSEA/VOMITING; Start 08/03/18 at 22:30 Acetaminophen (Tylenol Tab) 650 mg Q6H PRN PO .PAIN 1-3 OR TEMP; Start 08/03/18 at 22:30 Acetaminophen/ Hydrocodone Bitart ([place] (5/325)) 1 tab Q6H PRN PO .MOD PAIN 4- 6; Start 08/03/18 at 22:30 Pantoprazole (Protonix Tab) 40 mg DAILY@06 PO Last administered on 08/06/18at 05:23; Admin Dose 40 MG; Start 08/04/18 at 06:00 Vancomycin HCl (Vanco Iv Per Pharmacy) VANCOMYCIN PER PHARMACY PER PROTOCOL XX ; Start 08/04/18 at 01:00 Ceftriaxone Sodium 50 ml @ 100 mls/hr Q24H IVPB Last administered on 08/06/18at 01:11; Admin Dose 100 MLS/HR; Start 08/04/18 at 01:00 Allopurinol (Zyloprim) 100 mg DAILY PO Last administered on 08/05/18at 08:44; Admin Dose 100 MG; Start 08/04/18 at 09:00 Ivabradine (Corlanor) 5 mg BID PO Last administered on 08/05/18 20:37; Admin Dose 5 MG; Start 08/04/18 at 09:00 Colchicine (Colchicine) 0.6 mg DAILY PO Last administered on 08/05/18 08:43; Admin Dose 0.6 MG; Start 08/05/18 at 09:00; Stop 08/07/18 at 08:59 Miscellaneous Information Patients own medicat... BID@10,16 XX ; Start 08/04/18 at 10:00 Lisinopril (Zestril) 5 mg DAILY PO Last administered on 08/05/18 08:44; Admin Dose 5 MG; Start 08/05/18 at 09:00 Furosemide (Lasix) 20 mg DAILY PO Last administered on 08/05/18 08:44; Admin Dose 20 MG; Start 08/04/18 at 10:00 Vancomycin HCl 1.25 gm/Sodium Chloride 250 ml @ 83.333 mls/ hr Q12H IVPB Last administered on 08/06/18 05:23; Admin Dose 83.333 MLS/HR; Start 08/05/18 at 17:00 MERCEDES MERCADO MD Aug 06, 2018 07:58
[2018-08-06] MEDS: IVABRADINE HCL 5 MG TABLET PO SCH (08:51)
[2018-08-06] MEDS: COLCHICINE 0.6 MG TAB PO SCH (08:51)
[2018-08-06] MEDS: LISINOPRIL 5 MG TAB PO SCH (08:52)
[2018-08-06] MEDS: FUROSEMIDE 20 MG TAB PO SCH (08:52)
[2018-08-06] MEDS: ALLOPURINOL 100 MG TAB PO SCH (08:52)
--- NOTE | 2018-08-06 11:24 | CONS ---
Consult Date/Type/Reason Admit Date/Time Aug 03, 2018 at 21:43 Initial Consult Date 08/05/18 Type of Consultation: cv Date/Time of Note DATE: 08/06/18 TIME: 11:22 Subjective cardiology follow up note S D/w STAFF pt still c/o R foot edema but not much pain no cp no PND orthopnea o: Gen no acute distress HEENT NC AT, PER CV RRR. systolic murmur pulm: CTA b/l . no wheezing GI Obese soft ND EXT RLE foot edema. warm neuro [id number] pysch calm and pleasant Objective Vitals Vital Signs Date Temp Pulse Resp B/P (MAP) Pulse Ox O2 O2 Flow FiO2 Time Delivery Rate 08/06/18 98.0 57 18 147/77 93 Room Air 07:00 (100) 08/03/18 2.0 20:30 08/03/18 21 17:05 Intake and Output 08/05/18 08/05/18 08/06/18 1414:59 22:59 06:59 IntakeIntake Total 480 ml 490 ml 50 ml OutputOutput Total 300 ml BalanceBalance 180 ml 490 ml 50 ml Results/Medications Result Diagram: 08/06/18 0535 08/06/18 0535 Results 24 hrs Laboratory Tests Test 08/05/18 13:48 08/06/18 05:35 Vancomycin Level Trough 17.5 White Blood Count 7.0 # Red Blood Count 4.97 Hemoglobin 14.0 Hematocrit 43.3 Mean Corpuscular Volume 87.1 Mean Corpuscular Hemoglobin 28.2 L Mean Corpuscular Hemoglobin Concent 32.3 Red Cell Distribution Width 13.9 Platelet Count 192 Mean Platelet Volume 10.8 H Immature Granulocytes % 0.400 Neutrophils % 44.4 Lymphocytes % 37.8 Monocytes % 11.1 H Eosinophils % 5.7 Basophils % 0.6 Nucleated Red Blood Cells % 0.0 Immature Granulocytes # 0.030 Neutrophils # 3.1 Lymphocytes # 2.7 Monocytes # 0.8 Eosinophils # 0.4 Basophils # 0.0 Nucleated Red Blood Cells # 0.0 Sodium Level 143 Potassium Level 4.9 Chloride Level 104 Carbon Dioxide Level 29 Anion Gap 10 Blood Urea Nitrogen 30 H Creatinine 1.12 Est Glomerular Filtrat Rate mL/min > 60 Glucose Level 105 Calcium Level 9.3 Home Meds Reported Medications Metoprolol Succinate* (Toprol XL*) 25 Mg Tab.sr.24h, 25 MG PO QPM, #30 TAB 08/03/18 Atorvastatin Calcium (Atorvastatin Calcium) 10 Mg Tablet, 10 MG PO QHS, #30 TAB 08/03/18 Lisinopril* (Lisinopril*) 10 Mg Tablet, 10 MG PO DAILY, #30 TAB 08/03/18 Digoxin* (Digitek*) 125 Mcg Tablet, 0.125 MG PO DAILY, TAB 08/03/18 Ergocalciferol (Vitamin D2) (VITAMIN D2) 2,000 Unit Tablet, 2000 UNIT PO DAILY, TAB 08/03/18 Ivabradine HCl (Corlanor) 5 Mg Tablet, 5 MG PO BID, #60 TAB 08/03/18 Furosemide* (Furosemide*) 20 Mg Tablet, 20 MG PO DAILY, #60 TAB 08/03/18 Allopurinol* (Allopurinol*) 100 Mg Tablet, 100 MG PO DAILY, TAB 08/03/18 Aspirin (Low Dose Aspirin) 81 Mg Tablet.dr, 81 MG PO DAILY, #30 TAB 08/03/18 Discontinued Scripts Aspirin* (Aspirin* EC) 81 Mg Tablet.dr, 81 MG PO DAILY for 90 Days, #90 TAB 5 Refills Prov:AHMET SOLIS MD 06/22/18 Furosemide* (Lasix*) 20 Mg Tablet, 20 MG PO DAILY for 30 Days, #30 TAB 2 Refills Prov:AHMET SOLIS MD 06/22/18 Metoprolol Succinate* (Toprol XL*) 50 Mg Tab.er.24h, 50 MG PO DAILY for 90 Days, #90 TAB 5 Refills Prov:AHMET SOLIS MD 06/22/18 Lisinopril* (Lisinopril*) 10 Mg Tablet, 10 MG PO DAILY for 90 Days, #90 TAB 5 Refills Prov:AHMET SOLIS MD 06/22/18 Atorvastatin (Atorvastatin) 10 Mg Tablet, 10 MG PO HS for 60 Days, #60 TAB 5 Refills Prov:AHMET SOLIS MD 06/22/18 Medications Current Medications Atorvastatin Calcium (Lipitor) 10 mg QHS PO Last administered on 08/05/18at 20:37; Admin Dose 10 MG; Start 08/04/18 at 21:00 Digoxin (Digoxin) 0.125 mg DAILY@1300 PO Last administered on 08/05/18 13:24; Admin Dose 0.125 MG; Start 08/04/18 at 13:00 Metoprolol Succinate (Toprol Xl) 25 mg QPM PO Last administered on 08/05/18 20:37; Admin Dose 25 MG; Start 08/04/18 at 21:00 IV Flush (NS 3 ml) 3 ml PER PROTOCOL IV ; Start 08/03/18 at 22:30 Ondansetron HCl (Zofran Inj) 4 mg Q6H PRN IV NAUSEA/VOMITING; Start 08/03/18 at 22:30 Acetaminophen (Tylenol Tab) 650 mg Q6H PRN PO .PAIN 1-3 OR TEMP; Start 08/03/18 at 22:30 Acetaminophen/ Hydrocodone Bitart ([place] (5/325)) 1 tab Q6H PRN PO .MOD PAIN 4- 6; Start 08/03/18 at 22:30 Pantoprazole (Protonix Tab) 40 mg DAILY@06 PO Last administered on 08/06/18 05:23; Admin Dose 40 MG; Start 08/04/18 at 06:00 Allopurinol (Zyloprim) 100 mg DAILY PO Last administered on 08/06/18 08:52; Admin Dose 100 MG; Start 08/04/18 at 09:00 Ivabradine (Corlanor) 5 mg BID PO Last administered on 08/06/18 08:51; Admin Dose 5 MG; Start 08/04/18 at 09:00 Colchicine (Colchicine) 0.6 mg DAILY PO Last administered on 08/06/18 08:51; Admin Dose 0.6 MG; Start 08/05/18 at 09:00; Stop 08/07/18 at 08:59 Miscellaneous Information Patients own medicat... BID@,16 XX ; Start 08/04/18 at 10:00 Lisinopril (Zestril) 5 mg DAILY PO Last administered on 08/06/18 08:52; Admin Dose 5 MG; Start 08/05/18 at 09:00 Furosemide (Lasix) 20 mg DAILY PO Last administered on 08/06/18 08:52; Admin Dose 20 MG; Start 08/04/18 at 10:00 Assessment/Plan Hospital Course (Demo Recall) 1. cv preop 2 nonischemic cardiomyopathy 3. CHF: well compensated chronic due to systolic heart failure 4. HTN 5. gouty arthritis R ankle, / INFECTION cont toprol corlanor inc lisinopril lasix f/u with ID and ortho rec. thank you EUSEBIA LAWS MD Aug 06, 2018 11:24
--- NOTE | 2018-08-06 12:37 | PDOCDIS ---
Discharge Instructions CONDITION Biurw2Hw Patient Condition: [id number] Stable HOME CARE INSTRUCTIONS: [id number] Your diet recommendation is: Vacol2r LLOW UP/APPOINTMENTS Follow-up Plan Follow-up with 1 week [address] [place] [address] Office Follow-up with outpatient primary care and [employer] in 1 week. JAVIER LAM NP Aug 06, 2018 12:37
--- NOTE | 2018-08-06 12:46 | DS ---
Date/Time of Note Date/Time of Note DATE: 08/06/18 TIME: 12:41 Discharge Summary Admission/Discharge Info Admit Date/Time Aug 03, 2018 at 21:43 Discharge Date/Time Discharge Diagnosis 1. SIRS W/ right ankle gouty arthritis. Sepsis ruled out 2. Right ankle cellulitis w/ gouty arthritis. Resolving 3. Chronic systolic congestive heart failure, last known EF 30% w/life vest 4. Gout 5. Acute kidney injury, likely hemodynamic. Resolved 6. Hypertension 7. Dyslipidemia 8. Obesity with BMI 36.8 Patient Condition: Stable Consults ,ortho ,cards ,ID Procedures 08/03/2018. X-ray right ankle IMPRESSION: 1. Soft tissue swelling medially and laterally. 2. Small ankle joint effusion. 3. Mild degenerative narrowing of the ankle joint. 4. No fracture or acute osseous abnormality demonstrated. Hospital Course 53-year-old male with a history of dyslipidemia, CHF, hypertension, gout, admitted with worsening right ankle pain/swelling/tenderness times 4-day duration She was empirically managed with antibiotic for sepsis. Patient was being followed by ID specialist, and orthopedic surgeon. Patient underwent aspiration of right ankle gouty arthritis area, fluid studies negative for any infection, thus exclude septic arthritis and sepsis ruled out. Most likely SIRS.. There is no further recommendation to continue antibiotics. Patient was continued without management with colchicine. Patient clinically improved. 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 He was continued on outpatient management. Patient was also noted with mild acute kidney injury likely hemodynamics and was resolved. At this time, patient with no fevers, no further pain on right ankle/foot, resolving swelling, he is cleared from orthopedic surgery standpoint and ID specialist for outpatient follow-up. Patient was given information of orthopedic surgeon to follow-up in the event that if he notices any changes in his right foot. Patient is very eager to be discharged. His labs and vital signs are stable. He has been ablating without any difficulties. Approximately 60 m spent on coordinating the discharge on this patient. Patient was seen in collaboration with [place] Meds Reported Medications Metoprolol Succinate* (Toprol XL*) 25 Mg Tab.sr.24h, 25 MG PO QPM, #30 TAB 08/03/18 Atorvastatin Calcium (Atorvastatin Calcium) 10 Mg Tablet, 10 MG PO QHS, #30 TAB 08/03/18 Lisinopril* (Lisinopril*) 10 Mg Tablet, 10 MG PO DAILY, #30 TAB 08/03/18 Digoxin* (Digitek*) 125 Mcg Tablet, 0.125 MG PO DAILY, TAB 08/03/18 Ergocalciferol (Vitamin D2) (VITAMIN D2) 2,000 Unit Tablet, 2000 UNIT PO DAILY, TAB 08/03/18 Ivabradine HCl (Corlanor) 5 Mg Tablet, 5 MG PO BID, #60 TAB 08/03/18 Furosemide* (Furosemide*) 20 Mg Tablet, 20 MG PO DAILY, #60 TAB 08/03/18 Allopurinol* (Allopurinol*) 100 Mg Tablet, 100 MG PO DAILY, TAB 08/03/18 Aspirin (Low Dose Aspirin) 81 Mg Tablet., 81 MG PO DAILY, #30 TAB 08/03/18 Discontinued Scripts Aspirin* (Aspirin* EC) 81 Mg Tablet.dr, 81 MG PO DAILY for 90 Days, #90 TAB 5 Refills Prov:AHMET SOLIS MD 06/22/18 Furosemide* (Lasix*) 20 Mg Tablet, 20 MG PO DAILY for 30 Days, #30 TAB 2 Refills Prov:AHMET SOLIS MD 06/22/18 Metoprolol Succinate* (Toprol XL*) 50 Mg Tab.er.24h, 50 MG PO DAILY for 90 Days, #90 TAB 5 Refills Prov:AHMET SOLIS MD 06/22/18 Lisinopril* (Lisinopril*) 10 Mg Tablet, 10 MG PO DAILY for 90 Days, #90 TAB 5 Refills Prov:AHMET SOLIS MD 06/22/18 Atorvastatin (Atorvastatin) 10 Mg Tablet, 10 MG PO HS for 60 Days, #60 TAB 5 Refills Prov:AHMET SOLIS MD 06/22/18 Follow-up Plan Follow-up with 1 week [address] [facility], [address] [place] [id number] Office Follow-up with outpatient primary care and converter operator in 1 week. Primary Care Provider Care Physician No Primary Pending Labs Laboratory Tests Test 08/05/18 13:48 08/06/18 05:35 Vancomycin Level Trough 17.5 ug/ml (10.0-20.0) White Blood Count 7.0 10^3/ul (4.8-10.8) Red Blood Count 4.97 10^6/ul (4.70-6.10) Hemoglobin 14.0 g/dl (14.0-18.0) Hematocrit 43.3 % (42.0-52.0) Mean Corpuscular Volume 87.1 fl (82.0-101.0) Mean Corpuscular Hemoglobin 28.2 pg (29.0-33.0) Mean Corpuscular 32.3 g/dl (32.0-37.0) Hemoglobin Concent Red Cell Distribution Width 13.9 % (11.5-14.5) Platelet Count 192 10^3/UL (140-415) Mean Platelet Volume 10.8 fl (7.4-10.4) Immature Granulocytes % 0.400 % (0.001-0.429) Neutrophils % 44.4 % (39.0-77.0) Lymphocytes % 37.8 % (15.0-51.0) Monocytes % 11.1 % (0.0-11.0) Eosinophils % 5.7 % (0.0-7.0) Basophils % 0.6 % (0.0-2.0) Nucleated Red Blood Cells % 0.0 /100WBC (0.0-0.0) Immature Granulocytes # 0.030 10^3/ul (0.0-0.031) Neutrophils # 3.1 10^3/ul (1.6-7.5) Lymphocytes # 2.7 10^3/ul (0.8-2.9) Monocytes # 0.8 10^3/ul (0.3-0.9) Eosinophils # 0.4 10^3/ul (0.0-0.5) Basophils # 0.0 10^3/ul (0.0-0.1) Nucleated Red Blood Cells # 0.0 10^3/ul (0.0-0.0) Sodium Level 143 mmol/L (135-144) Potassium Level 4.9 mmol/L (3.5-5.1) Chloride Level 104 mmol/L (97-110) Carbon Dioxide Level 29 mmol/L (21-31) Anion Gap 10 (5-13) Blood Urea Nitrogen 30 mg/dl (7-20) Creatinine 1.12 mg/dl (0.61-1.24) Est Glomerular Filtrat > 60 mL/min (>60) Rate mL/min Glucose Level 105 mg/dl (70-220) Calcium Level 9.3 mg/dl (8.4-10.2) JAVIER LAM NP Aug 06, 2018 12:46
[2018-08-06 14:00] VITALS: BP 141/77; PULSE 78; RESP 18
[2018-08-06] MEDS: DIGOXIN 0.125 MG TAB PO SCH (14:16)
[2018-08-07] MEDS ORDERED: LISINOPRIL 10 MG TAB PO SCH (09:00)
--- NOTE | 2018-08-09 13:34 | RADRPT ---
Vent Rate: 67 bpm RR Interval: 896 msec GA Interval: 223 msec QRS Duration: 168 msec QT Interval: 441 msec QTC Interval: 466 msec P-R-T [place]: 55 - 46 - 257 degrees Sinus rhythm...normal P axis, V-rate 50- 99 Prolonged GA interval...GA >210, V-rate 50- 90 Right bundle branch block...QRSd>120, terminal axis(90,270) Repol abnrm suggests ischemia, lateral leads...ST dep, T neg, I aVL V5 V6 Electronically Signed By: Tico Urias
== END 2018-08-06 15:30 | disposition home or self-care (01) | DRG 603 ==
LOC: E/R 15:22 → PP2 21:43
PROVIDERS: ADMIT Internal Medicine; ATTEND Internal Medicine
PROC: 0S9F3ZZ Drainage of Right Ankle Joint, Percutaneous Approach (ICD-10-PCS; principal; 2018-08-04 17:00)
DX: L03.115 Cellulitis of right lower limb (principal); I50.22 Chronic systolic (congestive) heart failure; N17.9 Acute kidney failure, unspecified; I42.9 Cardiomyopathy, unspecified; R65.10 Systemic inflammatory response syndrome (SIRS) of non-infectious origin without acute organ dysfunction; M10.9 Gout, unspecified; E78.5 Hyperlipidemia, unspecified; I11.0 Hypertensive heart disease with heart failure; E66.9 Obesity, unspecified; Z68.36 Body mass index [BMI] 36.0-36.9, adult
CPT/HCPCS: 36415; 71045; 80048; 80053; 80162; 80202; 81003; 82550; 82553; 83036; 83605; 83735; 84436; 84443; 84479; 84484; 84560; 85025; 85610; 85651; 85730; 86140; 87040; 87070; 87075; 87086; 87400; 89051; 89060; 93005; 94664; 96374; 96375; J0692; J0696; J2930; J3370; J7030; J7050